=== PATIENT | male | born 1945 | race Caucasian/White ===

== ENCOUNTER 2017-07-26 13:15 | Inpatient (IN) | payer MEDICARE ==
[2017-07-26] VITALS (9 sets, daily range): BP systolic 175–206; BP diastolic 78–105; PULSE 66–96; RESP 18–20; TEMP 97.8; O2SAT 97–99
[~2017-07-26] VITALS: Ht 180.3 cm; Wt 86.3 kg
[2017-07-26 14:23] LABS: AUTOMATED NEUTROPHIL # 7.1 TH/MM3 (1.8-7.7); BASOPHIL % 0.4 % (0.0-2.0); EOSINOPHIL % 0.4 % (0.0-4.0); HEMATOCRIT 40.6 % (39.0-51.0); HEMOGLOBIN 14.1 GM/DL (13.0-17.0); LYMPH % 9.5 % (9.0-44.0); LYMPHOCYTE # 0.9 TH/MM3 (1.0-4.8); MEAN CELL VOLUME 91.2 FL (80.0-100.0); MEAN CORPUSCULAR HEMOGLOBIN 31.6 PG (27.0-34.0); MEAN CORPUSCULAR HGB CONC 34.7 % (32.0-36.0); MEAN PLATELET VOLUME 7.7 FL (7.0-11.0); MONO % 10.4 % (0.0-8.0); MONOCYTE # 0.9 TH/MM3 (0-0.9); NEUT % 79.3 % (16.0-70.0); PLATELET COUNT 251 TH/MM3 (150-450); RED BLOOD COUNT 4.45 MIL/MM3 (4.50-5.90); RED CELL DISTRIBUTION WIDTH 12.3 % (11.6-17.2)
[2017-07-26 14:32] LABS: INTERNATIONAL NORMALIZED RATIO 1.2 RATIO; PROTHROMBIN TIME - PATIENT 11.7 SEC (9.8-11.6)
[2017-07-26 14:40] LABS: CALCIUM 8.7 MG/DL (8.5-10.1); CREATININE 0.86 MG/DL (0.60-1.30)
[2017-07-26] MEDS ORDERED: SODIUM CHLORIDE 0.9% FLUSH 10 ML FLUSH IVF PRN (16:00)
--- NOTE | 2017-07-26 16:21 | RADRPT ---
EXAM DATE/TIME: 07/26/2017 16:09 [facility] COMPARISON: No previous studies available for comparison. INDICATIONS : Right sided weakness with slurred speech for two days. RADIATION DOSE: 37.84 CTDIvol (mGy) MEDICAL HISTORY : Hypertension. Thyroid disease. SURGICAL HISTORY : None. ENCOUNTER: Initial ACUITY: 2 days PAIN SCALE: 3/10 LOCATION: Right cranial TECHNIQUE: Multiple contiguous axial images were obtained of the head. Using automated exposure control and adj ustment of the mA and/or kV according to patient size, radiation dose was kept as low as reasonably a chievable to obtain optimal diagnostic quality images. DICOM format image data is available electro nically for review and comparison. FINDINGS: CEREBRUM: Periventricular low attenuation change involving both cerebral hemispheres. Small chronic lacunar inf arctions involving the basal ganglia bilaterally. The ventricles are normal for age. No evidence of midline shift, mass lesion, hemorrhage or acute infarction. No extra-axial fluid collections are see n. POSTERIOR FOSSA: The cerebellum and brainstem are intact. The 4th ventricle is midline. The cerebellopontine angle i s unremarkable. EXTRACRANIAL: The visualized portion of the orbits is intact. SKULL: The calvaria is intact. No evidence of skull fracture. CONCLUSION: 1. Chronic small vessel ischemic change. 2. No acute intracranial abnormality. Roman Payton Jr., MD on July 26, 2017 at 16:17 Board Certified Radiologist. This report was verified electronically.
--- NOTE | 2017-07-26 16:44 | RADRPT ---
EXAM DATE/TIME: 07/26/2017 16:18 [facility] COMPARISON: No previous studies available for comparison. INDICATIONS : Weakness. Evaluation for CVA. MEDICAL HISTORY : Hypertension. Thyroid disease. SURGICAL HISTORY : None. ENCOUNTER: Initial ACUITY: 1 day PAIN SCORE: 0/10 LOCATION: Bilateral chest FINDINGS: A single view of the chest demonstrates the lungs to be symmetrically aerated without evidence of mas s, infiltrate or effusion. The cardiomediastinal contours are unremarkable. Osseous structures are intact. CONCLUSION: 1. No acute cardiopulmonary disease. Israel Keenan MD on July 26, 2017 at 16:42 Board Certified Radiologist. This report was verified electronically.
--- NOTE | 2017-07-26 18:15 | PD ---
HPI Chief Complaint: Neuro Symptoms/ Deficits Time Seen by Provider: 15:38 Travel History International Travel<30 days: No Contact w/Intl Traveler<30days: No Traveled to known affect area: No History of Present Illness HPI This 71-year-old man who presents to the emergency department brought in by his family for right sided deficits. Family reports the patient developed symptoms last night. Right sided weakness numbness, difficulty walking, speech difficulties. There is some concern about alcohol use. He otherwise had been filled Gen. and healthy. Patient denies any medical history, denies seeing a doctor for any reason. Symptoms been constant since onset. No aggravating or alleviating factors. No other complaints. History Past Medical History Medical History: Denies Significant Hx Tetanus Vaccination: > 5 Years Influenza Vaccination: No Past Surgical History Surgical History: No Previous Surgery Social History Alcohol Use: Yes (3 x week) Tobacco Use: No Allergies-Medications (Allergen,Severity, Reaction): Coded Allergies: No Known Allergies (Unverified , 07/26/17) Reported Meds & Prescriptions Reported Meds & Active Scripts Active Active Prescriptions or Reported Medications Unobtainable Review of Systems Except as stated in HPI: all other systems reviewed are Neg Physical Exam Narrative GENERAL: 71-year-old man, tearful. 71-year-old woman, SKIN: Focused skin assessment warm/dry. HEAD: Atraumatic. Normocephalic. EYES: Pupils equal and round. No scleral icterus. No injection or drainage. ENT: No nasal bleeding or discharge. Mucous membranes pink and moist. Flattening of the right nasolabial fold. NECK: Trachea midline. No JVD. CARDIOVASCULAR: Regular rate and rhythm. No murmur appreciated. RESPIRATORY: No accessory muscle use. Clear to auscultation. Breath sounds equal bilaterally. GASTROINTESTINAL: Abdomen soft, non-tender, nondistended. Hepatic and splenic margins not palpable. MUSCULOSKELETAL: No obvious deformities. No clubbing. No cyanosis. No edema. NEUROLOGICAL: Awake and alert. Flattening of the right nasolabial fold with some right sided facial droop. Weakness especially in the right arm, less in the right leg. Some sensory changes on the right as well. Right sided dysmetric on the right upper extremity, less obvious in the right lower extremity. Speech difficulties of both some expressive aphasia as well as dysarthria. PSYCHIATRIC: Tearful and anxious. Data Data Last Documented VS Vital Signs Date Time Temp Pulse Resp B/P (MAP) Pulse Ox O2 Delivery O2 Flow Rate FiO2 07/26/17 16:30 68 19 183/84 (117) 99 Room Air 07/26/17 13:44 97.8 Orders Orders Complete Blood Count With Diff (07/26/17 14:11) Basic Metabolic Panel (Bmp) (07/26/17 14:11) Act Partial Throm Time (Ptt) (07/26/17 14:11) Prothrombin Time / Inr (Pt) (07/26/17 14:11) Ecg Monitoring (07/26/17 14:11) Oximetry (07/26/17 14:11) Blood Glucose (07/26/17 14:11) Electrocardiogram (07/26/17 15:47) Ct Brain W/O Iv Contrast(Rout) (07/26/17 15:47) Chest, Single Ap (07/26/17 15:47) Iv Access Insert/Monitor (07/26/17 15:47) Sodium Chloride 0.9% Flush (Ns Flush) (07/26/17 16:00) Alcohol (Ethanol) (07/26/17 16:06) Admit Order (Ed Use Only) (07/26/17 ) Vital Signs (Adult) Q4H (07/26/17 18:18) Diet Npo (07/26/17 Dinner) Activity Bed Rest (07/26/17 18:18) Notify Dr: Other (07/26/17 18:18) Place In Observation (07/26/17 ) Vital Signs (Adult) Q2HX12,Q4H (07/26/17 18:19) Nih Stroke Scale - Nihss .Daily (07/26/17 18:19) Neuro Checks Q2HX12,Q4H (07/26/17 18:19) Notify Dr: Other (07/26/17 18:19) Remove Urinary Catheter .ONCE (07/26/17 18:19) Ot Request For Service (07/26/17 18:19) Pt Request For Service (07/26/17 18:19) Case Management Consult (07/26/17 ) Activity Oob Ad Romelia (07/26/17 18:19) Nursing Bedside Swallow Assess .ONCE (07/26/17 18:19) Scd Bilateral/Knee High YOLANDA.QSHIFT (07/26/17 18:19) Hemoglobin (Hgb) A1c (07/26/17 18:19) Lipid Profile (07/27/17 06:00) Us Carotid Arteries Comp Bilat (07/26/17 ) Mra Brain W/O Contrast (Cow) (07/26/17 ) Mri Brain W/O Contrast (07/26/17 ) Echo 2d Comp With Doppler (07/26/17 ) ^ Hold Medication (07/26/17 18:19) Consult Neurology (07/26/17 ) Sodium Chloride 0.9% Flush (Ns Flush) (07/26/17 21:00) Sodium Chloride 0.9% Flush (Ns Flush) (07/26/17 18:30) Dextrose 50% In Maria A (Vial) Inj (D50w (Vi (07/26/17 18:30) Glucagon Inj (Glucagon Inj) (07/26/17 18:30) Overlock Sleeve Setter / Telemetry YOLANDA.Q8H (07/26/17 18:19) Consult Stroke Navigator (07/26/17 ) Labs Laboratory Tests Test 07/26/17 14:15 White Blood Count 9.0 TH/MM3 Red Blood Count 4.45 MIL/MM3 Hemoglobin 14.1 GM/DL Hematocrit 40.6 % Mean Corpuscular Volume 91.2 FL Mean Corpuscular Hemoglobin 31.6 PG Mean Corpuscular Hemoglobin Concent 34.7 % Red Cell Distribution Width 12.3 % Platelet Count 251 TH/MM3 Mean Platelet Volume 7.7 FL Neutrophils (%) (Auto) 79.3 % Lymphocytes (%) (Auto) 9.5 % Monocytes (%) (Auto) 10.4 % Eosinophils (%) (Auto) 0.4 % Basophils (%) (Auto) 0.4 % Neutrophils # (Auto) 7.1 TH/MM3 Lymphocytes # (Auto) 0.9 TH/MM3 Monocytes # (Auto) 0.9 TH/MM3 Eosinophils # (Auto) 0.0 TH/MM3 Basophils # (Auto) 0.0 TH/MM3 CBC Comment DIFF FINAL Differential Comment Prothrombin Time 11.7 SEC Prothromb Time International Ratio 1.2 RATIO Activated Partial Thromboplast Time 29.4 SEC Blood Urea Nitrogen 12 MG/DL Creatinine 0.86 MG/DL Random Glucose 98 MG/DL Calcium Level 8.7 MG/DL Sodium Level 129 MEQ/L Potassium Level 4.0 MEQ/L Chloride Level 94 MEQ/L Carbon Dioxide Level 27.0 MEQ/L Anion Gap 8 MEQ/L Estimat Glomerular Filtration Rate 88 ML/MIN Ethyl Alcohol Level LESS THAN 3 MG/DL MDM Medical Decision Making Medical Screen Exam Complete: Yes Emergency Medical Condition: Yes Interpretation(s) My review of EKG: Normal sinus rhythm at a rate of 70, leftward axis, normal intervals, no acute ischemia. Probably LVH. LABS: CBC unremarkable. BMP unremarkable. Coags unremarkable. Alcohol negative CT head: No acute disease Chest x-ray negative Differential Diagnosis Stroke, Raul's paralysis, head bleed, weakness, or joint abnormality, infection , other Narrative Course Medical decision making 71-year-old man presents emergent department with right sided paresis speech difficulties suggestive of stroke. Sinus rhythm. CT negative. We'll plan admission for further evaluation. Diagnosis Primary Impression: CVA (cerebral vascular accident) Admitting Information Admitting Physician Requests: Admit Scripts Unable to Obtain Active Prescriptions or Reported Meds Theodore Marques MD Jul 26, 2017 18:15
[2017-07-26] MEDS ORDERED: SODIUM CHLORIDE 0.9% FLUSH 10 ML FLUSH IV FLUSH PRN (18:30)
[2017-07-26] MEDS ORDERED: DEXTROSE 50% IN WATER 50 ML VIAL(D50) IV PUSH PRN (18:30)
[2017-07-26] MEDS ORDERED: GLUCAGON 1 MG/ML VIAL OTHER PRN (18:30)
[2017-07-26] MEDS: SODIUM CHLORIDE 0.9% FLUSH 10 ML FLUSH IV FLUSH SCH (21:10)
[2017-07-26] MEDS ORDERED: ATEN50TA PO (22:34)
--- NOTE | 2017-07-26 22:39 | RADRPT ---
EXAM DATE/TIME: 07/26/2017 21:18 [facility] COMPARISON: No previous studies available for comparison. INDICATIONS : Transient ischemic attack. MEDICAL HISTORY : Hypertension. Thyroid disease. Weakness. Numbness. ETOH use. SURGICAL HISTORY : None. ENCOUNTER: Initial ACUITY: 1 day PAIN SCORE: 3/10 LOCATION: Bilateral neck PEAK SYSTOLIC VELOCITIES (cm/sec): ICA/CCA RATIO: Right: 1.5 Left: 0.7 ICA: Right: 123 Left: 64 CCA: Right: 84 Left: 89 ECA: Right: 93 Left: 84 VERTEBRAL: Right: 59 antegrade Left: 60 antegrade Elevated flow velocities and ICA/CCA ratios have been found to correlate with increased degrees of vessel stenosis, calculated as percentage of diameter relative to a normal segment of distal ICA/CCA FINDINGS: RIGHT CAROTID: Mild noncalcified plaque in the carotid bulb. No significant stenosis is visualized. The waveforms are within normal limits. LEFT CAROTID: No significant stenosis is visualized. The waveforms are within normal limits. VERTEBRAL ARTERIES: Antegrade flow is seen in both vertebral arteries. MISCELLANEOUS: None. CONCLUSION: Right carotid bulb plaque formation with hemodynamic profile on both sides characteristic of less antwon n 50% stenosis. Roman Poole MD on July 26, 2017 at 22:35 Board Certified Radiologist. This report was verified electronically.
[2017-07-26] MEDS ORDERED: hydrALAZINE HCL 20 MG/ML VIAL IV PUSH ONE (22:45)
[2017-07-27] VITALS (10 sets, daily range): BP systolic 159–190; BP diastolic 79–95; PULSE 75–99; RESP 16–20; TEMP 97.8–99.1; O2SAT 98–99
[2017-07-27] MEDS ORDERED: LORazepam 1 MG TAB PO PRN (00:30)
[2017-07-27] MEDS ORDERED: LORazepam 2 MG/ML VIAL IV PUSH PRN ×4 (00:30)
[2017-07-27] MEDS ORDERED: LORazepam 2 MG TAB PO PRN (00:30)
[2017-07-27] MEDS ORDERED: SODIUM CHLOR 0.9% 1000 ML INJ 1,000 ML IV SCH (00:30)
[2017-07-27] MEDS ORDERED: FLUMAZENIL 0.5 MG/5 ML VIAL IV PUSH PRN (00:30)
[2017-07-27] MEDS ORDERED: ASPIRIN 81 MG CHEW TAB CHEW ONE (00:30)
--- NOTE | 2017-07-27 00:33 | HHI.HP ---
[facility] Service [facility] Primary Care Physician Unknown Admission Diagnosis CVA Diagnoses: Travel History International Travel<30 Days: No Contact w/Intl Traveler <30 Da: No Traveled to Known Affected Are: No History of Present Illness 71-year-old male with a past medical history significant for hypertension and hypothyroidism was brought to the emergency department for evaluation of right- sided deficits. The patient reports that yesterday he fell asleep and when he awoke his right arm was numb and weak. He also states that yesterday he fell while he was walking because he had no balance. The patient has slurred speech which was noticed by his niece and he was encouraged to go to the emergency department for further evaluation. He remains asymptomatic with slurred speech , right-sided facial droop and right upper and lower extremity weakness. Head CT was negative for acute intercranial abnormality but did show small vessel ischemic change. Review of Systems Denies fever or chills Denies blurry vision, otorrhea, rhinorrhea Denies sore throat and cough No chest pain, palpitations, shortness of breath No abdominal pain Denies constipation/diarrhea/nausea/vomiting Denies muscle pain/positive right sided weakness No rashes Past Family Social History Past Medical History Hypertension Hypothyroidism Past Surgical History None Reported Medications Reported Meds & Active Scripts Active Reported Atenolol 50 Mg Tab 50 Mg PO BID Unspecified thyroid medication Allergies: Coded Allergies: No Known Allergies (Unverified , 07/26/17) Family History Denies family history of CAD/DM Social History Quit smoking 15 years ago. Drinks approximately 1 bottle of wine 3 times per week. Denies marijuana, illicit drugs. Physical Exam Vital Signs Vital Signs Date Time Temp Pulse Resp B/P (MAP) Pulse Ox O2 Delivery O2 Flow Rate FiO2 07/27/17 00:00 98.7 81 18 163/95 (117) 98 Room Air 07/26/17 23:14 67 18 175/80 (111) 98 Room Air 07/26/17 22:32 66 18 206/91 (129) 99 Room Air 07/26/17 21:36 77 18 178/85 (116) 98 Nasal Cannula 4.00 07/26/17 21:15 96 20 186/100 (128) 98 07/26/17 20:17 70 18 187/78 (114) 98 Room Air 07/26/17 16:30 68 19 183/84 (117) 99 Room Air 07/26/17 15:20 69 20 205/105 (138) 99 Room Air 07/26/17 15:18 98 Room Air 07/26/17 13:44 97.8 70 20 195/91 (125) 97 Physical Exam GENERAL: male lying in bed SKIN: No rashes, ecchymoses or lesions. Cool and dry. HEAD: Atraumatic. Normocephalic. No temporal or scalp tenderness. EYES: Pupils equal round and reactive. Extraocular motions intact. No scleral icterus. No injection or drainage. ENT: Nose without bleeding, purulent drainage or septal hematoma. Throat without erythema, tonsillar hypertrophy or exudate. Uvula midline. Airway patent. NECK: Trachea midline. No JVD or lymphadenopathy. Supple, nontender, no meningeal signs. CARDIOVASCULAR: Regular rate and rhythm without murmurs, gallops, or rubs. RESPIRATORY: Clear to auscultation. Breath sounds equal bilaterally. No wheezes , rales, or rhonchi. GASTROINTESTINAL: Abdomen soft, non-tender, nondistended. No hepato-splenomegaly , or palpable masses. No guarding. MUSCULOSKELETAL: Extremities without clubbing, cyanosis, or edema. No joint tenderness, effusion, or edema noted. No calf tenderness. NEUROLOGICAL: Awake and alert. Slurred speech. Right-sided facial droop. Right hand electric fan assembler strength 2/5. Right upper and lower extremity strength 3/5. Laboratory Laboratory Tests Test 07/26/17 14:15 White Blood Count 9.0 Red Blood Count 4.45 Hemoglobin 14.1 Hematocrit 40.6 Mean Corpuscular Volume 91.2 Mean Corpuscular Hemoglobin 31.6 Mean Corpuscular Hemoglobin Concent 34.7 Red Cell Distribution Width 12.3 Platelet Count 251 Mean Platelet Volume 7.7 Neutrophils (%) (Auto) 79.3 Lymphocytes (%) (Auto) 9.5 Monocytes (%) (Auto) 10.4 Eosinophils (%) (Auto) 0.4 Basophils (%) (Auto) 0.4 Neutrophils # (Auto) 7.1 Lymphocytes # (Auto) 0.9 Monocytes # (Auto) 0.9 Eosinophils # (Auto) 0.0 Basophils # (Auto) 0.0 CBC Comment DIFF FINAL Differential Comment Prothrombin Time 11.7 Prothromb Time International Ratio 1.2 Activated Partial Thromboplast Time 29.4 Blood Urea Nitrogen 12 Creatinine 0.86 Random Glucose 98 Calcium Level 8.7 Sodium Level 129 Potassium Level 4.0 Chloride Level 94 Carbon Dioxide Level 27.0 Anion Gap 8 Estimat Glomerular Filtration Rate 88 Ethyl Alcohol Level LESS THAN 3 Result Diagram: 07/26/17 14107/26/17 141 Caprini VTE Risk Assessment Caprini VTE Risk Assessment: Mod/High Risk (score >= 2) Caprini Risk Assessment Model Point Value = 1 Point Value = 2 Point Value = 3 Point Value = 5 Age 41-60 Minor surgery BMI > 25 kg/m2 Swollen legs Varicose veins or History of unexplained or recurrent spontaneous Oral contraceptives or hormone replacement Sepsis (< 1 month) Serious lung disease, including pneumonia (< 1 month) Abnormal pulmonary function Acute myocardial infarction Congestive heart failure (< 1 month) History of inflammatory bowel disease Medical patient at bed rest Age 61-74 Arthroscopic surgery Major open surgery (> 45 min) Laparoscopic surgery (> 45 min) Malignancy Confined to bed (> 72 hours) Immobilizing plaster cast Central venous access Age >= 75 History of VTE Family history of VTE Factor V Leiden Prothrombin [id number] Lupus anticoagulant Anticardiolipin antibodies Elevated serum homocysteine Heparin-induced thrombocytopenia Other congenital or acquired thrombophilia Stroke (< 1 month) Elective arthroplasty Hip, pelvis, or leg fracture Acute spinal cord injury (< 1 month) Prophylaxis Regimen Total Risk Factor Score Risk Level Prophylaxis Regimen 0-1 Low Early ambulation 2 Moderate Order ONE of the following: *Sequential Compression Device (SCD) *Heparin 5000 units SQ BID 3-4 Higher Order ONE of the following medications: *Heparin 5000 units SQ TID *Enoxaparin/Lovenox 40 mg SQ daily (WT < 150 kg, CrCl > 30 mL/min) *Enoxaparin/Lovenox 30 mg SQ daily (WT < 150 kg, CrCl > 10-29 mL/min) *Enoxaparin/Lovenox 30 mg SQ BID (WT < 150 kg, CrCl > 30 mL/min) AND/OR *Sequential Compression Device (SCD) 5 or more Highest Order ONE of the following medications: *Heparin 5000 units SQ TID (Preferred with Epidurals) *Enoxaparin/Lovenox 40 mg SQ daily (WT < 150 kg, CrCl > 30 mL/min) *Enoxaparin/Lovenox 30 mg SQ daily (WT < 150 kg, CrCl > 10-29 mL/min) *Enoxaparin/Lovenox 30 mg SQ BID (WT < 150 kg, CrCl > 30 mL/min) AND *Sequential Compression Device (SCD) Assessment and Plan Assessment and Plan Assessment/plan: 1. CVA Patient with residual right-sided weakness and right facial droop, continuing slurred speech CT head negative for acute intracranial process Carotid ultrasound showed right carotid bulb plaque formation with less than 50 % stenosis Brain MRI/MRA pending Echo pending Lipid profile, A1c pending Aspirin Neurology consulted, appreciate recommendations 2. Hypertension Permissive hypertension at this time 3. Hypothyroidism TSH pending Will clarify patient's home thyroid medication and restart 4. Concern for alcohol abuse Patient states he drinks 1 bottle of wine approximately 3 times per week. Per ED notes, there is concern about alcohol abuse CIWA protocol Cessation counseling provided FEN NPO NS at 70 cc/hr Electrolytes: monitor and replete prn Physician Certification 2 Midnight Certification Type: Admission for Inpatient Services Order for Inpatient Services The services are ordered in accordance with Medicare regulations or non- Medicare payer requirements, as applicable. In the case of services not specified as inpatient-only, they are appropriately provided as inpatient services in accordance with the 2-midnight benchmark. Estimated LOS (days): 2 2 days is the estimated time the patient will need to remain in the hospital, assuming treatment plan goals are met and no additional complications. Post-Hospital Plan: Not yet determined Chloé Hager MD Jul 27, 2017 00:32
[2017-07-27 07:42] LABS: AUTOMATED NEUTROPHIL # 8.4 TH/MM3 (1.8-7.7); BASOPHIL % 0.2 % (0.0-2.0); EOSINOPHIL % 0.4 % (0.0-4.0); HEMATOCRIT 41.8 % (39.0-51.0); HEMOGLOBIN 14.8 GM/DL (13.0-17.0); LYMPH % 12.8 % (9.0-44.0); LYMPHOCYTE # 1.4 TH/MM3 (1.0-4.8); MEAN CELL VOLUME 91.4 FL (80.0-100.0); MEAN CORPUSCULAR HEMOGLOBIN 32.3 PG (27.0-34.0); MEAN CORPUSCULAR HGB CONC 35.3 % (32.0-36.0); MEAN PLATELET VOLUME 8.4 FL (7.0-11.0); MONO % 10.2 % (0.0-8.0); MONOCYTE # 1.1 TH/MM3 (0-0.9); NEUT % 76.4 % (16.0-70.0); PLATELET COUNT 257 TH/MM3 (150-450); RED BLOOD COUNT 4.57 MIL/MM3 (4.50-5.90); RED CELL DISTRIBUTION WIDTH 12.5 % (11.6-17.2)
[2017-07-27 07:59] LABS: CALCIUM 8.3 MG/DL (8.5-10.1); CREATININE 0.73 MG/DL (0.60-1.30)
[2017-07-27 08:08] LABS: CHOLESTEROL/ HDL RATIO 3.09 RATIO; HDL CHOLESTEROL 61.1 MG/DL (40.0-60.0)
[2017-07-27 08:20] LABS: BANDS 6 % (0-6); LYMPHOCYTES 13 % (9-44); MONOCYTES 13 % (0-8); POLYS (SEG NEUTROPHILS) 67 % (16-70)
[2017-07-27] MEDS: SODIUM CHLOR 0.9% 1000 ML INJ 1,000 ML IV SCH ×2 (09:00→22:36)
[2017-07-27] MEDS: SODIUM CHLORIDE 0.9% FLUSH 10 ML FLUSH IV FLUSH SCH ×2 (09:00→22:36)
[2017-07-27] MEDS: ASPIRIN EC 325 MG TABEC PO SCH (09:00)
[2017-07-27] MEDS ORDERED: GADODIAMIDE PF 287 MG/ML 20 ML VIAL (for RAD MRI) IVCONTRAST ONE (09:28)
--- NOTE | 2017-07-27 09:33 | RADRPT ---
EXAM DATE/TIME: 07/27/2017 09:07 [facility] COMPARISON: No previous studies available for comparison. INDICATIONS : Right sided weakness. CVA. MEDICAL HISTORY : Hypertension. SURGICAL HISTORY : Tonsillectomy. ENCOUNTER: Subsequent ACUITY: 2 day PAIN SCORE: 0/10 LOCATION: head. Please note a normal MRA of the brain does not entirely exclude the possibility of a small aneurysm, nor the possibility of distal intracranial vessel disease. TECHNIQUE: 3D time of flight MRA was performed. Source images, multiplanar STS MIP, and 3D volume MIP reconstru ctions were reviewed. FINDINGS: There is excellent visualization of the major intracranial arteries out to the second-order branch ve ssels. There is no evidence for aneurysm, and no evidence for vascular malformation. There is some low grade narrowing involving the left middle cerebral artery just proximal to its bifu rcation. CONCLUSION: Slight narrowing of the distal left middle cerebral artery, otherwise unremarkable exam. Theodore Lanier MD on July 27, 2017 at 9:30 Board Certified Radiologist. This report was verified electronically.
--- NOTE | 2017-07-27 10:09 | RADRPT ---
EXAM DATE/TIME: 07/27/2017 09:07 [facility] COMPARISON: No previous studies available for comparison. INDICATIONS : Right sided weakness. CVA. CONTRAST: 20 cc Omniscan (gadodiamide) IV MEDICAL HISTORY : Hypertension. SURGICAL HISTORY : Tonsillectomy. ENCOUNTER: Subsequent ACUITY: 2 day PAIN SCORE: 0/10 LOCATION: head. TECHNIQUE: Multiplanar, multisequence MRI of the brain was performed both prior to and following the administrat ion of paramagnetic contrast. FINDINGS: CEREBRUM: The ventricles are normal for age. No evidence of midline shift, mass lesion, hemorrhage or acute in farction. No extraaxial fluid collections are seen. The pituitary gland and suprasellar cistern are normal in configuration. WHITE MATTER: Scattered areas of increased signal in the periventricular white matter suggesting ischemic demyelini zation POSTERIOR FOSSA: The cerebellum and brainstem are intact. The 4th ventricle is midline. The cerebellopontine angle is unremarkable. The cerebellar tonsils are normal in position. DIFFUSION IMAGING: Elongated abnormal areas of signal in the external capsule on the left measuring 1.9 cm in AP dimensi on and 3-4 mm across. It appears thin elongated infarct. EXTRACRANIAL: The visualized portions of the orbits and paranasal sinuses are unremarkable. POST-CONTRAST: No abnormal areas of parenchymal or dural enhancement. No evidence of blood-brain barrier breakdown. CONCLUSION: Infarct in the left external capsule. No significant mass or mass effect. Theodore Lanier MD on July 27, 2017 at 10:05 Board Certified Radiologist. This report was verified electronically.
--- NOTE | 2017-07-27 10:33 | RADRPT ---
EXAM DATE/TIME: 07/27/2017 09:07 [facility] COMPARISON: No previous studies available for comparison. INDICATIONS : Stenosis. CVA. CONTRAST: 20 cc Omniscan (gadodiamide) IV MEDICAL HISTORY : Hypertension. SURGICAL HISTORY : Tonsillectomy. ENCOUNTER: Subsequent ACUITY: 2 day PAIN SCORE: 0/10 LOCATION: head. Percent stenosis is calculated using the diameter of the stenotic region over the diameter of the nor mal distal internal carotid artery. TECHNIQUE: Bolus infused MRA of the extracranial circulation was performed using a neurovascular coil. Post pro cessing was performed including rotating subvolume maximum intensity projections of each carotid lamonte ry, rotating full volume maximum intensity projections of both carotid arteries, sagittal and coronal sliding thin slab reformations of each carotid artery, and left oblique sliding thin slab reformatio n through the aortic arch to include the origin of the arch branch vessels. FINDINGS: AORTIC ARCH: There is a three vessel origin of the great vessels from the aorta. No evidence of ostial narrowing. RIGHT CAROTID: The common carotid artery is intact. The carotid bulb has a normal configuration without ulceration or narrowing. Eccentric plaque in the proximal internal carotid artery with resultant approximate 20 -30% stenosis. The internal carotid artery is otherwise patent to the skull base. The external carot id artery is intact. LEFT CAROTID: The common carotid artery is intact. The carotid bulb has a normal configuration without ulceration or narrowing. The internal carotid artery lumen is smooth without significant stenosis. The externa l carotid artery is intact. VERTEBRALS: The vertebral arteries have a symmetric diameter. No stenotic lesions are seen. CONCLUSION: 1. Eccentric plaque in the proximal right internal carotid artery with resultant approximately 20-30% stenosis. 2. Patent left carotid artery without significant flow-limiting stenosis. 3. Patent vertebral arteries without significant flow-limiting stenosis. Israel Keenan MD on July 27, 2017 at 10:25 Board Certified Radiologist. This report was verified electronically.
--- NOTE | 2017-07-27 11:56 | MB ---
cc: GUYCARMEN DATE OF CONSULTATION 07/27/2017 HISTORY OF PRESENT ILLNESS A 71-year-old right-handed man with hypertension, hypothyroidism. He does not take an aspirin a day. He thinks about 10 years ago he might had some weakness on the right side, went to the ER but left from the ER, was told he did not have a stroke. Nevertheless last Monday he became weak on the right side. He says he had breathed in some carbon monoxide from a car going by his house and then went in, took a nap, woke up, could not move his right arm well. He had several falls yesterday and came into the hospital last night. REVIEW OF SYSTEMS No diabetes, hypercholesterolemia, CA, CABG, cardiac arrhythmia, stent, angioplasty, A-fib, Coumadin, renal, hepatic, pulmonary disease, lupus, ulcer, cancer, seizure. SOCIAL HISTORY He is not a smoker. Has two drinks a day, beer. Lives with his niece. FAMILY HISTORY Negative for cancer or seizure. Positive for stroke in his father at an older age. MEDICATIONS Atenolol. Does not take an aspirin a day or any blood thinners. PHYSICAL EXAMINATION VITAL SIGNS: On exam he has been sinus rhythm, afebrile, 99, 161/85, initially 205/105. NECK: There were no carotid bruits. HEART: Regular rhythm. I do not detect a murmur. NEUROLOGIC: Pupils are equal. Visual soto are full. Extraocular movements intact without nystagmus. Face has a slight right facial droop. Tongue was midline. He has a positive right drift. His left upper and lower extremity strength was normal as was the right lower extremity strength. The right upper extremities has some a mild ataxia. His triceps was 5/5, finger extensors 4+/5 and he is clumsy moving the right hand. Speech is fluent. He is not aphasic. He is oriented x3. Pinprick appeared to be symmetric and intact. The toes are downgoing bilaterally. DTRs are trace. LABORATORY DATA CBC was normal. Alcohol level negative. Basic metabolic profile - sodium 129, otherwise normal. IMAGING STUDIES Chest x-ray - Negative. Carotid ultrasound - Negative. CAT scan of the brain shows some white matter changes bilaterally, several discrete individual areas of white matter change. EKG Sinus rhythm. IMPRESSION 1. Left infarct. He has got a pure motor hemiparesis, could be lacunar either in the nicole are by the internal capsule. We will check an MRI of the brain for now, put him on aspirin, check his LDL cholesterol, some additional blood work. 2. Keep his head of bed flat. 3. IV fluids. 4. His niece thinks he is a little better than when he came in. 5. We will let his blood pressure run high for now. 6. Do an echo and Holter and further stroke workup. 7. Check a troponin. MD ALIZA Hicks/HEIDE /8:00 AM /11:02 AM
--- NOTE | 2017-07-27 13:29 | EKG ---
Date Performed: 07/26/2017 Time Performed: 15:36:46 PTAGE: 71 years EKG: Sinus rhythm WITH FIRST DEGREE AV BLOCK MARKED LEFT AXIS DEVIATION MODERATE VOLTAGE CRITERIA FOR LVH, CONSIDER NO RMAL VARIANT ABNORMAL ECG NO PREVIOUS TRACING DOCTOR: Sachin Hillman Interpretating Date/Time 07/27/2017 13:27:54
[2017-07-27 14:28] LABS: ALT (GPT) 25 U/L (12-78); AST (GOT) 33 U/L (15-37)
[2017-07-27 14:31] LABS: FREE T4 1.53 NG/DL (0.76-1.46); TROPONIN I LESS THAN 0.02 NG/ML (0.02-0.05)
[2017-07-27 15:32] LABS: HEMOGLOBIN A1C 4.7 % (4.3-6.0)
--- NOTE | 2017-07-27 15:41 | ECHRPT ---
Indication: cva/tia CONCLUSIONS Normal left ventricular size. Wall thickness is measured at the upper limits of normal. The left ventricular systolic function is normal with an estimated ejection fraction of 60-65% [id number] mitral valve regurgitation. There is mild tricuspid valve regurgitation. Doppler parameters are consistent with impaired left ventricular relaxtion (grade 1 diastolic dysfun ction). Mild aortic dilatation at the level of the sinuses of Valsalva. BP: 206 / 91 HR: Rhythm: MEASUREMENTS (Male / Female) Normal Values Technical Quality:Fair 2D ECHO LV Diastolic Diameter PLAX 3.6 cm 4.2 - 5.9 / 3.9 - 5.3 cm LV Systolic Diameter PLAX 2.5 cm IVS Diastolic Thickness 1.1 cm 0.6 - 1.0 / 0.6 - 0.9 cm LVPW Diastolic Thickness 0.8 cm 0.6 - 1.0 / 0.6 - 0.9 cm LV Relative Wall Thickness 0.5 RV Internal Dim ED PLAX 2.8 cm M-MODE Aortic Root Diameter MM 4.4 cm LA Systolic Diameter MM 4.2 cm LA Ao Ratio MM 1.0 AV Cusp Separation MM 1.5 cm DOPPLER Mitral E Point Velocity 81.4 cm/s Mitral A Point Velocity 122.0 cm/s Mitral E to A Ratio 0.7 LV E' Lateral Velocity 8.2 cm/s Mitral E to LV E' Lateral Ratio 9.9 LV E' Septal Velocity 7.1 cm/s Mitral E to LV E' Septal Ratio 11.4 FINDINGS LEFT VENTRICLE Normal left ventricular size. Wall thickness is measured at the upper limits of normal. The left ventricular systolic function is normal with an estimated ejection fraction in the range of 60-65%. Doppler parameters are consistent with impaired left ventricular relaxtion (grade 1 diastolic dysfun ction). RIGHT VENTRICLE Normal right ventricular size and systolic function. LEFT ATRIUM The left atrial size is normal. RIGHT ATRIUM The right atrial size is normal. ATRIAL SEPTUM Normal atrial septal thickness without atrial level shunting by limited color doppler interrogation. AORTA Mild aortic dilatation at the level of the sinuses of Valsalva. MITRAL VALVE Structurally normal mitral valve. Ukvtu-pt-ense mitral valve regurgitation. AORTIC VALVE Trileaflet aortic valve. TRICUSPID VALVE Structurally normal tricuspid valve. There is mild tricuspid valve regurgitation. PULMONARY VALVE No pulmonary valve regurgitation or stenosis. VESSELS The inferior vena cava is normal in size. PERICARDIUM No pericardial effusion. Quan A. Horenstein MD (Electronically Signed) Final Date:27 July 2017 15:40
[2017-07-28] VITALS (12 sets, daily range): BP systolic 162–187; BP diastolic 81–101; PULSE 73–96; RESP 18–20; TEMP 97.5–98.8; O2SAT 97–98
--- NOTE | 2017-07-28 07:36 | HHI.PR ---
Subjective Remarks sr Objective Vital Signs Date Time Temp Pulse Resp B/P (MAP) Pulse Ox O2 Delivery O2 Flow Rate FiO2 07/28/17 06:09 97.7 78 18 179/101 (127) 97 07/28/17 05:34 73 07/28/17 01:34 80 07/28/17 00:08 97.5 74 18 179/94 (122) 98 07/27/17 21:33 98.7 75 18 173/89 (117) 98 07/27/17 16:21 82 07/27/17 15:41 97.8 78 20 181/85 (117) 98 07/27/17 12:00 99.1 81 20 190/92 (124) 98 I/O 07/27/17 07/27/17 07/27/17 07/28/17 07/28/17 07/28/17 07:00 15:00 23:00 07:00 15:00 23:00 Output Total 350 ml 500 ml 350 ml Balance -350 ml -500 ml -350 ml Output Urine Total 350 ml 500 ml 350 ml # Voids 1 # Bowel Movements 0 Result Diagram: 07/27/17 0652 07/27/17 0648 Objective Remarks speech clear vff very ataxic rue and now fingers 2/5 rle 4+ tricep 5- right Assessment and Plan Assessment and Plan imp (there was another pts info incorrectly in this chart and i have fixed that) mr watson has gotten a little worse since yest his ldl inc and left deep mca cva some ? mild left distal dz mca before trifurcation mra neck neg echo nl x la 42 will need cardionet o/p plan is 325 as and he needs statin ellie started keep ivf on hob flat and bp up today and neuro will fu in am call me if any inc weakness i dw charge nurse Sachin Nicole MD Jul 28, 2017 07:35
[2017-07-28] MEDS: SODIUM CHLORIDE 0.9% FLUSH 10 ML FLUSH IV FLUSH SCH ×2 (08:14→20:29)
[2017-07-28] MEDS: ASPIRIN EC 325 MG TABEC PO SCH (08:14)
[2017-07-28] MEDS: SODIUM CHLOR 0.9% 1000 ML INJ 1,000 ML IV SCH ×3 (12:30→23:12)
[2017-07-28 14:29] LABS: BICARBONATE 20.7 MEQ/L (21.0-32.0); CREATININE 0.74 MG/DL (0.60-1.30)
[2017-07-28 15:26] LABS: ANA SCREEN NEG (NEG)
--- NOTE | 2017-07-28 15:59 | HHI.PR ---
Subjective Remarks Patient says he is feeling ordered today. Reports he had poor sleep overnight, is requesting some for sleep at night. Continued right-sided weakness unchnaged this morning Objective Vital Signs Date Time Temp Pulse Resp B/P (MAP) Pulse Ox O2 Delivery O2 Flow Rate FiO2 07/28/17 11:36 98.1 93 20 169/91 (117) 98 07/28/17 10:00 84 07/28/17 07:45 98.8 84 20 187/100 (129) 97 07/28/17 06:09 97.7 78 18 179/101 (127) 97 07/28/17 05:34 73 07/28/17 01:34 80 07/28/17 00:08 97.5 74 18 179/94 (122) 98 07/27/17 21:33 98.7 75 18 173/89 (117) 98 07/27/17 16:21 82 I/O 07/27/17 07/27/17 07/27/17 07/28/17 07/28/17 07/28/17 07:00 15:00 23:00 07:00 15:00 23:00 Intake Total 1122 ml Output Total 350 ml 500 ml 350 ml 250 ml Balance -350 ml -500 ml -350 ml 872 ml Intake IV Total 1122 ml Output Urine Total 350 ml 500 ml 350 ml 250 ml # Voids 1 # Bowel Movements 0 Result Diagram: 07/27/17 0652 07/28/17 1333 Objective Remarks GENERAL: patient lying in bed. Appears comfortable. SKIN: Warm and dry. HEAD: Normocephalic. EYES: No scleral icterus. No injection or drainage. NECK: Supple, trachea midline. No JVD. CARDIOVASCULAR: Regular rate and rhythm without murmurs, gallops, or rubs. RESPIRATORY: Breath sounds equal bilaterally. No accessory muscle use. GASTROINTESTINAL: Abdomen soft, non-tender, nondistended. MUSCULOSKELETAL: No cyanosis, or edema. BACK: Nontender without obvious deformity. No CVA tenderness. A/P Assessment and Plan //CVA Patient with residual right-sided weakness and right facial droop, continuing slurred speech CT head negative for acute intracranial process Carotid ultrasound showed right carotid bulb plaque formation with less than 50 % stenosis Brain MRI/MRA pending Echo pending Lipid profile, A1c pending Aspirin Neurology consulted, appreciate recommendations = Urology following. Appreciate assistance Hyponatremia. Sodium 123 from 128. Suspect this is in part chronic due to alcoholism. We'll check magnesium. This appears to be partially hypovolemic with dehydration. Will bolus and increase normal saline maintenance fluids. Every 8 hour sodium. Follow-up magnesium level. // Hypertension Permissive hypertension at this time //Hyperlipidemia. Start statin. //Hypothyroidism TSH pending Will clarify patient's home thyroid medication and restart / Concern for alcohol abuse Patient states he drinks 1 bottle of wine approximately 3 times per week. Per ED notes, there is concern about alcohol abuse CIWA protocol Cessation counseling provided = 07/28 discontinue CIWA protocol. Not requiring today. Discharge Planning pending improvement in sodium. Pending neurology clearance. Kale Tillman MD Jul 28, 2017 15:59
[2017-07-28] MEDS ORDERED: POTASSIUM CHLORIDE 20 MEQ CONTROLLED RELEASE TAB PO ONE (16:00)
[2017-07-28] MEDS ORDERED: ATORVASTATIN 40 MG TAB PO ONE (16:00)
[2017-07-28] MEDS ORDERED: SODIUM CHLOR 0.9% 250 ML INJ 250 ML IV ONE (16:00)
[2017-07-29] VITALS (10 sets, daily range): BP systolic 141–199; BP diastolic 77–106; PULSE 51–86; RESP 17–20; TEMP 97.4–98.9; O2SAT 96–98
[2017-07-29 03:45] LABS: AUTOMATED NEUTROPHIL # 5.8 TH/MM3 (1.8-7.7); BASOPHIL # 0.1 TH/MM3 (0-0.2); BASOPHIL % 0.6 % (0.0-2.0); EOSINOPHIL # 0.1 TH/MM3 (0-0.4); EOSINOPHIL % 1.3 % (0.0-4.0); HEMATOCRIT 37.9 % (39.0-51.0); HEMOGLOBIN 13.3 GM/DL (13.0-17.0); LYMPH % 18.5 % (9.0-44.0); LYMPHOCYTE # 1.7 TH/MM3 (1.0-4.8); MEAN CELL VOLUME 89.8 FL (80.0-100.0); MEAN CORPUSCULAR HEMOGLOBIN 31.6 PG (27.0-34.0); MEAN CORPUSCULAR HGB CONC 35.1 % (32.0-36.0); MEAN PLATELET VOLUME 8.2 FL (7.0-11.0); MONO % 14.7 % (0.0-8.0); MONOCYTE # 1.3 TH/MM3 (0-0.9); NEUT % 64.9 % (16.0-70.0); PLATELET COUNT 246 TH/MM3 (150-450); RED BLOOD COUNT 4.22 MIL/MM3 (4.50-5.90); RED CELL DISTRIBUTION WIDTH 12.2 % (11.6-17.2); WHITE BLOOD COUNT 8.9 TH/MM3 (4.0-11.0)
[2017-07-29 04:08] LABS: ALBUMIN 3.2 GM/DL (3.4-5.0); BICARBONATE 24.2 MEQ/L (21.0-32.0); CALCIUM 7.9 MG/DL (8.5-10.1); CREATININE 0.6 MG/DL (0.60-1.30); MAGNESIUM 1.7 MG/DL (1.5-2.5); PHOSPHORUS 2.1 MG/DL (2.5-4.9)
[2017-07-29 07:40] LABS: BILIRUBIN, URINE NEG (NEG); BLOOD, URINE NEG (NEG); GLUCOSE,URINE NEG (NEG); KETONE, URINE NEG (NEG); MUCUS URINE FEW /lpf (OCC); NITRITE,URINE NEG (NEG); URINE COLOR LIGHT-YELLOW (YELLW/STRAW); URINE LEUKOCYTE ESTERASE NEG (NEG)
[2017-07-29] MEDS: SODIUM CHLOR 0.9% 1000 ML INJ 1,000 ML IV SCH ×2 (08:00→16:00)
[2017-07-29] MEDS: SODIUM CHLORIDE 0.9% FLUSH 10 ML FLUSH IV FLUSH SCH ×2 (08:25→20:38)
[2017-07-29] MEDS: ATORVASTATIN 40 MG TAB PO SCH (08:25)
[2017-07-29] MEDS: ASPIRIN EC 325 MG TABEC PO SCH (08:26)
--- NOTE | 2017-07-29 09:14 | HHI.PR ---
Subjective Remarks Blood pressure no higher side started medications Vasotec allow her. Patient denies having any headaches says that however and the same not improving. No new motor deficit., No Vomiting, diarrhea or constipation. Objective Vitals Vital Signs Date Time Temp Pulse Resp B/P (MAP) Pulse Ox O2 Delivery O2 Flow Rate FiO2 07/29/17 08:08 98.5 51 17 199/106 (137) 97 07/29/17 04:00 98.0 74 18 190/91 (124) 96 07/29/17 00:41 75 07/29/17 00:00 98.7 62 18 151/77 (101) 96 07/28/17 21:09 73 07/28/17 20:00 98.5 79 18 162/81 (108) 98 07/28/17 16:30 83 07/28/17 15:44 97.9 84 20 179/92 (121) 97 07/28/17 12:10 96 07/28/17 11:36 98.1 93 20 169/91 (117) 98 07/28/17 10:00 84 I/O 07/28/17 07/28/17 07/28/17 07/29/17 07/29/17 07/29/17 07:00 15:00 23:00 07:00 15:00 23:00 Intake Total 2042 ml 250 ml 1451 ml Output Total 350 ml 775 ml 400 ml 700 ml Balance -350 ml 1267 ml 250 ml 1051 ml -700 ml Intake Oral 920 ml 451 ml IV Total 1122 ml 250 ml 1000 ml Output Urine Total 350 ml 775 ml 400 ml 700 ml # Bowel Movements 0 0 Result Diagram: 07/29/17 0324 07/29/17 0324 Imaging Last Impressions Neck Magnetic Resonance Angiography 07/27/17802 Signed Impressions: Service Date/Time: July 09:07 - CONCLUSION: 1. Eccentric plaque in the proximal right internal carotid artery with resultant approximately 20-30%% stenosis. 2. Patent left carotid artery without significant flow-limiting stenosis. 3. Patent vertebral arteries without significant flow-limiting stenosis. Israel Keenan MD Brain MRI 07/27/17802 Signed Impressions: Service Date/Time: July 09:07 - CONCLUSION: Infarct in the left external capsule. No significant mass or mass effect. Theodore Lanier MD Head Magnetic Resonance Angiography 07/27/17 0000 Signed Impressions: Service Date/Time: July 09:07 - CONCLUSION: Slight narrowing of the distal left middle cerebral artery, otherwise unremarkable exam. Theodore Lanier MD Head CT 07/26/17 1547 Signed Impressions: Service Date/Time: Wednesday, July 26, 2017 16:09 - CONCLUSION: 1. Chronic small vessel ischemic change. 2. No acute intracranial abnormality. Roman Payton Jr., MD Chest X-Ray 07/26/17 1547 Signed Impressions: Service Date/Time: Wednesday, July 26, 2017 16:18 - CONCLUSION: 1. No acute cardiopulmonary disease. Israel Keenan MD Carotid Artery Ultrasound 07/26/17 0000 Signed Impressions: Service Date/Time: Wednesday, July 26, 2017 21:18 - CONCLUSION: Right carotid bulb plaque formation with hemodynamic profile on both sides characteristic of less than 50%% stenosis. Roman Poole MD Objective Remarks GENERAL: 71 yo male, well nourished well developed, appears in nad. CARDIOVASCULAR: Regular rate and rhythm without murmurs, gallops, or rubs. RESPIRATORY: Breath sounds equal bilaterally. No accessory muscle use. GASTROINTESTINAL: Abdomen soft, non-tender, nondistended. MUSCULOSKELETAL: No cyanosis, or edema. NEURO: Right-sided weakness, slurred speech, drooping right side of face, out of 5 strength in the right arm, right hand drop, 3/5 right leg strength. BACK: Nontender without obvious deformity. No CVA tenderness. A/P Assessment and Plan CVA Patient with residual right-sided weakness and right facial droop, continuing slurred speech CT head negative for acute intracranial process Carotid ultrasound showed right carotid bulb plaque formation with less than 50 % stenosis Brain MRI/MRA pending Echo pending Lipid profile . Continue statin A1c 4.7 Aspirin Neurology consulted, ff, appreciate recommendations Consult PT/OT/ST Hyponatremia. Sodium 128. Suspect this is in part chronic due to alcoholism. This appears to be partially hypovolemic with dehydration. Will bolus and increase normal saline maintenance fluids. Every 8 hour sodium. Follow-up magnesium level. Replace electrolytes Hypertension Permissive hypertension at this time Hyperlipidemia. Start statin. Hypothyroidism TSH pending Will clarify patient's home thyroid medication and restart Concern for alcohol abuse Patient states he drinks 1 bottle of wine approximately 3 times per week. Per ED notes, there is concern about alcohol abuse CIWA protocol Cessation counseling provided 07/28 discontinue CIWA protocol. Not requiring. However patient is taking 1 mg ativan for insomnia at night at home, restart per neuro. Monitor Discharge Planning Pending improvement in sodium. Pending neurology clearance. Michelle Villalobos MD Jul 29, 2017 09:14
[2017-07-29] MEDS ORDERED: POTASSIUM PHOSPHATE MONOBASIC 500 MG TAB PO ONE (09:15)
--- NOTE | 2017-07-29 09:46 | HHI.PR ---
Review/Management Diagnosis/Plan: (1) Acute ischemic left MCA stroke ICD Codes: I63.512 - Cerebral infarction due to unspecified occlusion or stenosis of left middle cerebral artery Status: Acute Plan: aspirin/statin recs ativan for insomnia- home dose per pt/ request permissive htn mainly bedrest today excpet for eating and if dyspneic (2) HTN (hypertension) ICD Codes: I10 - Essential (primary) hypertension Status: Chronic (3) HLD (hyperlipidemia) ICD Codes: E78.5 - Hyperlipidemia, unspecified Status: Chronic Subjective Subjective Comments No acute events reported. not sleeping well. takes ativan 1mg qhs for insomnia. feels weaker if he doesn't get his sleep xcover No headache No chest pain No dyspnea Active Medications Current Medications Medications (Trade) Dose Ordered Sig/Luther Route Start Time Stop Time Status Last Admin (NS Flush) 2 ml BID IV FLUSH 07/26/17 21:00 07/28/17 20:29 (NS Flush) 2 ml UNSCH PRN IV FLUSH 07/26/17 18:30 (D50w (Vial) Inj) 50 ml UNSCH PRN IV PUSH 07/26/17 18:30 (Glucagon Inj) 1 mg UNSCH PRN OTHER 07/26/17 18:30 (Romazicon Inj) 0.2 mg Q1M PRN IV PUSH 07/27/17 00:30 (Ativan) 1 mg Q4H PRN PO 07/27/17 00:30 (Ativan) 2 mg Q2H PRN PO 07/27/17 00:30 (Ativan Inj) 2 mg Q2H PRN IV PUSH 07/27/17 00:30 (Ativan Inj) 2 mg Q1H PRN IV PUSH 07/27/17 00:30 (Ativan Inj) 2 mg Q15M PRN IV PUSH 07/27/17 00:30 (Ecotrin Ec) 325 mg DAILY PO 07/27/17 09:00 07/29/17 08:26 (Lipitor) 40 mg DAILY PO 07/29/17 09:00 07/29/17 08:25 Sodium Chloride 1,000 ml @ 125 mls/hr Q8H IV 07/28/17 16:00 07/29/17 08:00 (Vasotec Inj) 2.5 mg Q6H PRN IV PUSH 07/29/17 09:15 Allergies Allergies Coded Allergies No Known Allergies ([id number]/17) Review of Systems All other ROS: ROS reviewed as documented in chart Exam I&O / VS 07/29/17 07/29/17 07/30/17 15:00 23:00 07:00 Output Total 700 ml Balance -700 ml Output Urine Total 700 ml Vital Signs Date Time Temp Pulse Resp B/P (MAP) Pulse Ox O2 Delivery O2 Flow Rate FiO2 07/29/17 08:08 98.5 51 17 199/106 (137) 97 07/29/17 04:00 98.0 74 18 190/91 (124) 96 07/29/17 00:41 75 07/29/17 00:00 98.7 62 18 151/77 (101) 96 07/28/17 21:09 73 07/28/17 20:00 98.5 79 18 162/81 (108) 98 07/28/17 16:30 83 07/28/17 15:44 97.9 84 20 179/92 (121) 97 07/28/17 12:10 96 07/28/17 11:36 98.1 93 20 169/91 (117) 98 07/28/17 10:00 84 General: Alert and Oriented, No acute distress Respiratory: Non-labored respirations Neurologic: Alert, Oriented Psychiatric: Cooperative Exam Comments ox 3, follows, eomi, mild reduced rt nlf, rt hemiparesis 3/5 Objective Micro and Labs Laboratory Tests Test 07/28/17 13:33 07/29/17 03:24 07/29/17 06:46 Blood Urea Nitrogen 6 8 Creatinine 0.74 0.60 Random Glucose 133 103 Calcium Level 8.0 7.9 Sodium Level 123 128 Potassium Level 3.4 3.7 Chloride Level 92 95 Carbon Dioxide Level 20.7 24.2 Anion Gap 10 9 Estimat Glomerular Filtration Rate 105 133 Magnesium Level 1.6 1.7 White Blood Count 8.9 Red Blood Count 4.22 Hemoglobin 13.3 Hematocrit 37.9 Mean Corpuscular Volume 89.8 Mean Corpuscular Hemoglobin 31.6 Mean Corpuscular Hemoglobin Concent 35.1 Red Cell Distribution Width 12.2 Platelet Count 246 Mean Platelet Volume 8.2 Neutrophils (%) (Auto) 64.9 Lymphocytes (%) (Auto) 18.5 Monocytes (%) (Auto) 14.7 Eosinophils (%) (Auto) 1.3 Basophils (%) (Auto) 0.6 Neutrophils # (Auto) 5.8 Lymphocytes # (Auto) 1.7 Monocytes # (Auto) 1.3 Eosinophils # (Auto) 0.1 Basophils # (Auto) 0.1 CBC Comment AUTO DIFF Differential Comment AUTO DIFF CONFIRMED Platelet Estimate NORMAL Platelet Morphology Comment NORMAL Red Cell Morphology Comment NORMAL Albumin 3.2 Phosphorus Level 2.1 Urine Color LIGHT-YELLOW Urine Turbidity CLEAR Urine pH 7.0 Urine Specific [place] 1.009 Urine Protein NEG Urine Glucose (UA) NEG Urine Ketones NEG Urine Occult Blood NEG Urine Nitrite NEG Urine Bilirubin NEG Urine Urobilinogen LESS THAN 2.0 Urine Leukocyte Esterase NEG Urine RBC LESS THAN 1 Urine WBC LESS THAN 1 Urine Mucus FEW Microscopic Urinalysis Comment CULT NOT INDICATED Urine Opiates Screen NEG Urine Barbiturates Screen NEG Urine Amphetamines Screen NEG Urine Benzodiazepines Screen NEG Urine Cocaine Screen NEG Urine Cannabinoids Screen NEG Problem Qualifiers (1) HTN (hypertension): Qualified Codes: I10 - Essential (primary) hypertension (2) HLD (hyperlipidemia): Qualified Codes: E78.5 - Hyperlipidemia, unspecified Pradeep Holder MD Jul 29, 2017 09:46
[2017-07-29] MEDS ORDERED: LORazepam 1 MG TAB PO PRN (10:00)
[2017-07-29] MEDS: ENALAPRILAT 2.5 MG/2 ML VIAL IV PUSH PRN (10:37)
[2017-07-29 17:50] LABS: METHYLMALONIC ACID 0.1 nmol/mL (<=0.40)
[2017-07-30] VITALS (15 sets, daily range): BP systolic 163–201; BP diastolic 82–106; PULSE 70–105; RESP 17–20; TEMP 97.3–99; O2SAT 94–98
[2017-07-30] MEDS: ENALAPRILAT 2.5 MG/2 ML VIAL IV PUSH PRN (01:00)
[2017-07-30] MEDS: SODIUM CHLOR 0.9% 1000 ML INJ 1,000 ML IV SCH ×3 (01:05→20:39)
[2017-07-30] MEDS ORDERED: cloNIDine HCL 0.1 MG TAB PO ONE (04:45)
[2017-07-30] MEDS: SODIUM CHLORIDE 0.9% FLUSH 10 ML FLUSH IV FLUSH SCH ×2 (09:00→20:12)
--- NOTE | 2017-07-30 09:02 | HHI.PR ---
Subjective Remarks Follow up CVA, hypertension. Patient fell overnight. Opened a wound that was present on his right knee, but no other injuries reported. Patient denies pain. Per nursing, he is more sedated/confused today. Objective Vitals Vital Signs Date Time Temp Pulse Resp B/P (MAP) Pulse Ox O2 Delivery O2 Flow Rate FiO2 07/30/17 08:10 99.0 78 17 163/100 (121) 96 07/30/17 05:53 179/92 (121) 07/30/17 04:30 181/106 (131) 07/30/17 03:30 98.3 77 18 167/100 (122) 98 07/30/17 02:31 98.7 76 18 168/99 (122) 98 07/30/17 01:30 98.0 70 20 166/82 (110) 97 07/30/17 01:05 97.3 72 18 191/93 (125) 97 07/30/17 00:30 97.9 72 18 201/90 (127) 96 07/30/17 00:15 97.9 81 18 194/93 (126) 94 07/29/17 20:00 98.9 86 20 186/88 (120) 97 07/29/17 15:49 98.0 75 17 141/93 (109) 97 07/29/17 15:03 86 07/29/17 11:54 98.3 73 17 162/92 (115) 98 07/29/17 11:30 97.4 73 18 189/97 (127) 97 07/29/17 10:54 75 I/O 07/29/17 07/29/17 07/29/17 07/30/17 07/30/17 07/30/17 07:00 15:00 23:00 07:00 15:00 23:00 Intake Total 1451 ml 480 ml 1000 ml 962 ml Output Total 400 ml 1650 ml 550 ml 700 ml 200 ml Balance 1051 ml -1170 ml 450 ml 262 ml -200 ml Intake Oral 451 ml 480 ml IV Total 1000 ml 1000 ml 962 ml Output Urine Total 400 ml 1650 ml 550 ml 700 ml 200 ml # Voids 2 # Bowel Movements 1 1 Result Diagram: 07/29/17 0324 07/30/17 0152 Imaging Last Impressions Neck Magnetic Resonance Angiography 07/27/17 0803 Signed Impressions: Service Date/Time: July 09:07 - CONCLUSION: 1. Eccentric plaque in the proximal right internal carotid artery with resultant approximately 20-30%% stenosis. 2. Patent left carotid artery without significant flow-limiting stenosis. 3. Patent vertebral arteries without significant flow-limiting stenosis. Israel Keenan MD Brain MRI 07/27/17 0803 Signed Impressions: Service Date/Time: July 09:07 - CONCLUSION: Infarct in the left external capsule. No significant mass or mass effect. Theodore Lanier MD Head Magnetic Resonance Angiography 07/27/17 0000 Signed Impressions: Service Date/Time: July 09:07 - CONCLUSION: Slight narrowing of the distal left middle cerebral artery, otherwise unremarkable exam. Theodore Lanier MD Head CT 07/26/17 1547 Signed Impressions: Service Date/Time: Wednesday, July 26, 2017 16:09 - CONCLUSION: 1. Chronic small vessel ischemic change. 2. No acute intracranial abnormality. Roman Payton Jr., MD Chest X-Ray 07/26/17 1547 Signed Impressions: Service Date/Time: Wednesday, July 26, 2017 16:18 - CONCLUSION: 1. No acute cardiopulmonary disease. Israel Keenan MD Carotid Artery Ultrasound 07/26/17 0000 Signed Impressions: Service Date/Time: Wednesday, July 26, 2017 21:18 - CONCLUSION: Right carotid bulb plaque formation with hemodynamic profile on both sides characteristic of less than 50%% stenosis. Roman Poole MD Objective Remarks General: Elderly male in no acute distress. Heart: Regular rate and rhythm. No murmur. Lungs: Clear to auscultation bilaterally. No wheezes, rales, or rhonchi. Breathing is nonlabored. Abdomen: Soft, nontender, nondistended. Extremities: No lower extremity edema. Psych: Sleeping/sedated. Difficult to awaken. Patient exhibits dysarthria. He is oriented to person, year, month. Procedures none Urinary Catheter: No Vascular Central Line Catheter: No A/P Assessment and Plan 1. CVA: Patient has residual right-sided weakness and right facial droop. He also has dysarthria. Appreciate neurology recommendations. Continue aspirin. Continue PT/OT/ST. 2. Hyponatremia: Likely chronic secondary to alcoholism. So likely a component of hypovolemia/dehydration. Continue IV fluids. Monitor labs. 3. Hypertension: Allow permissive hypertension at this time. Vasotec as needed for BP 200/100. 4. Hyperlipidemia: Statin. 5. Hypothyroidism: TSH is normal. Free T4 is slightly high. 6. Alcohol abuse history: CIWA protocol discontinued. Patient has been counseled. 7. Insomnia: Patient taking 1 mg of Ativan at bedtime. He is quite sedated today and this may have contributed to his fall overnight. Decrease Ativan dose. 8. DVT prophylaxis: ABELINO Bains. Discharge Planning Pending further improvement, neurology clearance. Dhruv Carl MD Jul 30, 2017 09:02
[2017-07-30] MEDS: ATORVASTATIN 40 MG TAB PO SCH (09:54)
[2017-07-30] MEDS: ASPIRIN EC 325 MG TABEC PO SCH (09:54)
--- NOTE | 2017-07-30 11:19 | HHI.PR ---
Review/Management Diagnosis/Plan: (1) Acute ischemic left MCA stroke ICD Codes: I63.512 - Cerebral infarction due to unspecified occlusion or stenosis of left middle cerebral artery Status: Acute Plan: aspirin/statin recs neuro stable ativan dose reduced fall precautions permissive htn ok to sit up in bed needs to go to rehab (2) HTN (hypertension) ICD Codes: I10 - Essential (primary) hypertension Status: Chronic (3) HLD (hyperlipidemia) ICD Codes: E78.5 - Hyperlipidemia, unspecified Status: Chronic Subjective Subjective Comments fell last night trying to get out of bed. denies headache,spine pain,limb pain. feels the same still wants ativan for sleep No headache No chest pain No dyspnea Active Medications Current Medications Medications (Trade) Dose Ordered Sig/Luther Route Start Time Stop Time Status Last Admin (NS Flush) 2 ml BID IV FLUSH 07/26/17 21:00 07/30/17 09:00 (NS Flush) 2 ml UNSCH PRN IV FLUSH 07/26/17 18:30 (D50w (Vial) Inj) 50 ml UNSCH PRN IV PUSH 07/26/17 18:30 (Glucagon Inj) 1 mg UNSCH PRN OTHER 07/26/17 18:30 (Ecotrin Ec) 325 mg DAILY PO 07/27/17 09:00 07/30/17 09:54 (Lipitor) 40 mg DAILY PO 07/29/17 09:00 07/30/17 09:54 Sodium Chloride 1,000 ml @ 75 mls/hr [id number] IV 07/28/17 16:00 07/30/17 09:54 (Vasotec Inj) 2.5 mg Q6H PRN IV PUSH 07/29/17 09:15 07/30/17 01:00 (Ativan) 0.5 mg HS PRN PO 07/30/17 21:00 Allergies Allergies Coded Allergies No Known Allergies (Sfsiexeyvq16/21/17) Review of Systems All other ROS: ROS reviewed as documented in chart Exam I&O / VS 07/30/17 07/30/17 07/31/17 15:00 23:00 07:00 Intake Total 1000 ml Output Total 200 ml Balance 800 ml IV Total 1000 ml Output Urine Total 200 ml Vital Signs Date Time Temp Pulse Resp B/P (MAP) Pulse Ox O2 Delivery O2 Flow Rate FiO2 07/30/17 11:11 74 07/30/17 08:10 99.0 78 17 163/100 (121) 96 07/30/17 05:53 179/92 (121) 07/30/17 04:30 181/106 (131) 07/30/17 03:30 98.3 77 18 167/100 (122) 98 07/30/17 02:31 98.7 76 18 168/99 (122) 98 07/30/17 01:30 98.0 70 20 166/82 (110) 97 07/30/17 01:05 97.3 72 18 191/93 (125) 97 07/30/17 00:30 97.9 72 18 201/90 (127) 96 07/30/17 00:15 97.9 81 18 194/93 (126) 94 07/29/17 20:00 98.9 86 20 186/88 (120) 97 07/29/17 15:49 98.0 75 17 141/93 (109) 97 07/29/17 15:03 86 07/29/17 11:54 98.3 73 17 162/92 (115) 98 07/29/17 11:30 97.4 73 18 189/97 (127) 97 General: Alert and Oriented, No acute distress Respiratory: Non-labored respirations Neurologic: Alert, Oriented Psychiatric: Cooperative Exam Comments ox 3, follows, mildly dysarthric speech, eomi, ou 4-3mm, mild reduced rt nlf, rt hemiparesis 3/5 ataxic Objective Micro and Labs Laboratory Tests Test 07/30/17 01:52 Sodium Level 125 Problem Qualifiers (1) HTN (hypertension): Qualified Codes: I10 - Essential (primary) hypertension (2) HLD (hyperlipidemia): Qualified Codes: E78.5 - Hyperlipidemia, unspecified Pradeep Holder MD Jul 30, 2017 11:19
[2017-07-31] VITALS (9 sets, daily range): BP systolic 133–181; BP diastolic 61–104; PULSE 64–90; RESP 18–20; TEMP 97.4–98.5; O2SAT 95–98
[2017-07-31] MEDS: SODIUM CHLOR 0.9% 1000 ML INJ 1,000 ML IV SCH ×2 (00:14→23:19)
[2017-07-31 07:45] LABS: BICARBONATE 24.2 MEQ/L (21.0-32.0); CALCIUM 8.2 MG/DL (8.5-10.1); CREATININE 0.71 MG/DL (0.60-1.30)
[2017-07-31] MEDS: ASPIRIN EC 325 MG TABEC PO SCH (08:57)
[2017-07-31] MEDS: ATORVASTATIN 40 MG TAB PO SCH (08:57)
--- NOTE | 2017-07-31 10:19 | HHI.PR ---
Review/Management Diagnosis/Plan: (1) Acute ischemic left MCA stroke ICD Codes: I63.512 - Cerebral infarction due to unspecified occlusion or stenosis of left middle cerebral artery Status: Acute Plan: aspirin/statin recs neuro stable needs to go to rehab (2) HTN (hypertension) ICD Codes: I10 - Essential (primary) hypertension Status: Chronic (3) HLD (hyperlipidemia) ICD Codes: E78.5 - Hyperlipidemia, unspecified Status: Chronic Subjective Subjective Comments No acute events reported No headache No chest pain No dyspnea Active Medications Current Medications Medications (Trade) Dose Ordered Sig/Luther Route Start Time Stop Time Status Last Admin (NS Flush) 2 ml BID IV FLUSH 07/26/17 21:00 07/30/17 20:12 (NS Flush) 2 ml UNSCH PRN IV FLUSH 07/26/17 18:30 (D50w (Vial) Inj) 50 ml UNSCH PRN IV PUSH 07/26/17 18:30 (Glucagon Inj) 1 mg UNSCH PRN OTHER 07/26/17 18:30 (Ecotrin Ec) 325 mg DAILY PO 07/27/17 09:00 07/31/17 08:57 (Lipitor) 40 mg DAILY PO 07/29/17 09:00 07/31/17 08:57 Sodium Chloride 1,000 ml @ 75 mls/hr [id number] IV 07/28/17 16:00 07/31/17 00:14 (Vasotec Inj) 2.5 mg Q6H PRN IV PUSH 07/29/17 09:15 07/30/17 01:00 (Ativan) 0.5 mg HS PRN PO 07/30/17 21:00 Allergies Allergies Coded Allergies No Known Allergies (Ypyshomnxr27/21/17) Review of Systems All other ROS: ROS reviewed as documented in chart Exam I&O / VS Vital Signs Date Time Temp Pulse Resp B/P (MAP) Pulse Ox O2 Delivery O2 Flow Rate FiO2 07/31/17 08:00 98.1 69 19 181/104 (129) 95 07/31/17 04:00 97.8 80 18 164/97 (119) 97 07/31/17 04:00 75 07/31/17 00:07 87 07/31/17 00:00 97.4 83 20 150/61 (90) 95 07/30/17 20:08 80 07/30/17 20:00 98.5 79 18 189/97 (127) 96 07/30/17 18:14 85 07/30/17 16:00 105 07/30/17 15:51 97.8 80 17 176/94 (121) 97 07/30/17 11:11 74 General: Alert and Oriented, No acute distress Respiratory: Non-labored respirations Neurologic: Alert, Oriented Psychiatric: Cooperative Exam Comments ox 3, follows, sitting up in chair, mildly dysarthric speech, eomi, ou 4-3mm, mild reduced rt nlf, rt hemiparesis 3+/5 ataxic Objective Micro and Labs Laboratory Tests Test 07/31/17 05:59 Blood Urea Nitrogen 8 Creatinine 0.71 Random Glucose 91 Calcium Level 8.2 Sodium Level 126 Potassium Level 3.6 Chloride Level 93 Carbon Dioxide Level 24.2 Anion Gap 9 Estimat Glomerular Filtration Rate 110 Problem Qualifiers (1) HTN (hypertension): Qualified Codes: I10 - Essential (primary) hypertension (2) HLD (hyperlipidemia): Qualified Codes: E78.5 - Hyperlipidemia, unspecified Pradeep Holder MD Jul 31, 2017 10:19
--- NOTE | 2017-07-31 10:32 | HM ---
Date Performed: 07/27/2017 Time Performed: 18:07:00 HOOKUP DATE: 07/27/17 06:07:00 PM Priscila ANALYSIS START TIME: 07/27/2017 6:12:00 PM ANALYSIS END TIME: 07/28/2017 6:16:00 PM PATIENT AGE: 71 PATIENT HEIGHT PATIENT WEIGHT DRUG LIST PATIENT DIAGNOSIS: cva TEST NARRATIVE: The patient's average heart rate was 87 BPM. Heart rates greater than 120 B PM were noted < 1% of the time. No episodes of bradycardia were noted. No pauses exceeding 2.0 s econds were noted. No episodes of ST depression (defined as -1.0 mm or more) were noted in channe l 1. No episodes of ST depression (defined as -1.0 mm or more) were noted in channel 2. No episodes of ST depression (defined as -1.0 mm or more) were noted in channel 3. NO DIARY RETURNED TEST INTERPRETATION: Sinus rhythm Frequent PACs Nonsustained atrial tachycardia Infrequent PVCs Signed by : Chelsey Washington
[2017-07-31] MEDS ORDERED: ATOR40TA16 PO (10:59)
[2017-07-31] MEDS ORDERED: ASPI325T33 PO (10:59)
--- NOTE | 2017-07-31 10:59 | HHI.DCPOC ---
Discharge Care Plan Diagnosis: (1) HTN (hypertension) (2) HLD (hyperlipidemia) (3) Acute ischemic left MCA stroke Goals to Promote Your Health * To prevent worsening of your condition and complications * To maintain your health at the optimal level Directions to Meet Your Goals Take your medications as prescribed Follow your dietary instruction Follow activity as directed Keep your appointments as scheduled Take your immunizations and boosters as scheduled If your symptoms worsen call your PCP, if no PCP go to Urgent Care Center or Emergency Room Smoking is Dangerous to Your Health. Avoid second hand smoke Call the 24-hour hour crisis hotline for domestic abuse at Dhruv Carl MD Jul 31, 2017 10:59
--- NOTE | 2017-07-31 11:05 | HHI.DS ---
Discharge Summary Admission Date Jul 26, 2017 at 21:14 Discharge Date: Jul 31, 2017 Admitting Diagnosis CVA (1) HTN (hypertension) ICD Code: I10 - Essential (primary) hypertension Status: Chronic (2) HLD (hyperlipidemia) ICD Code: E78.5 - Hyperlipidemia, unspecified Status: Chronic (3) Acute ischemic left MCA stroke ICD Code: I63.512 - Cerebral infarction due to unspecified occlusion or stenosis of left middle cerebral artery Status: Acute (4) Hyponatremia ICD Code: E87.1 - Hypo-osmolality and hyponatremia Procedures none Brief History - From Admission 71-year-old male with a past medical history significant for hypertension and hypothyroidism was brought to the emergency department for evaluation of right- sided deficits. The patient reports that yesterday he fell asleep and when he awoke his right arm was numb and weak. He also states that yesterday he fell while he was walking because he had no balance. The patient has slurred speech which was noticed by his niece and he was encouraged to go to the emergency department for further evaluation. He remains asymptomatic with slurred speech , right-sided facial droop and right upper and lower extremity weakness. Head CT was negative for acute intercranial abnormality but did show small vessel ischemic change. CBC/BMP: 07/29/17 0324 07/31/17 0559 Significant Findings Laboratory Tests Test 07/28/17 13:33 07/29/17 03:24 07/29/17 06:46 07/30/17 01:52 Blood Urea Nitrogen 6 MG/DL (7-18) Random Glucose 133 MG/DL (74-106) Calcium Level 8.0 MG/DL (8.5-10.1) 7.9 MG/DL (8.5-10.1) Sodium Level 123 MEQ/L (136-145) 128 MEQ/L (136-145) 125 MEQ/L (136-145) Potassium Level 3.4 MEQ/L (3.5-5.1) Chloride Level 92 MEQ/L (98-107) 95 MEQ/L (98-107) Carbon Dioxide Level 20.7 MEQ/L (21.0-32.0) Red Blood Count 4.22 MIL/MM3 (4.50-5.90) Hematocrit 37.9 % (39.0-51.0) Monocytes (%) (Auto) 14.7 % (0.0-8.0) Monocytes # (Auto) 1.3 TH/MM3 (0-0.9) Albumin 3.2 GM/DL (3.4-5.0) Phosphorus Level 2.1 MG/DL (2.5-4.9) Urine Mucus FEW /lpf (OCC) Test 07/31/17 05:59 Calcium Level 8.2 MG/DL (8.5-10.1) Sodium Level 126 MEQ/L (136-145) Chloride Level 93 MEQ/L (98-107) Imaging Last Impressions Neck Magnetic Resonance Angiography 07/27/17 0803 Signed Impressions: Service Date/Time: July 09:07 - CONCLUSION: 1. Eccentric plaque in the proximal right internal carotid artery with resultant approximately 20-30%% stenosis. 2. Patent left carotid artery without significant flow-limiting stenosis. 3. Patent vertebral arteries without significant flow-limiting stenosis. Israel Keenan MD Brain MRI 07/27/17 0803 Signed Impressions: Service Date/Time: July 09:07 - CONCLUSION: Infarct in the left external capsule. No significant mass or mass effect. Theodore Lanier MD Head Magnetic Resonance Angiography 07/27/17 0000 Signed Impressions: Service Date/Time: July 09:07 - CONCLUSION: Slight narrowing of the distal left middle cerebral artery, otherwise unremarkable exam. Theodore Lanier MD Head CT 07/26/17 1547 Signed Impressions: Service Date/Time: Wednesday, July 26, 2017 16:09 - CONCLUSION: 1. Chronic small vessel ischemic change. 2. No acute intracranial abnormality. Roman Payton Jr., MD Chest X-Ray 07/26/17 1547 Signed Impressions: Service Date/Time: Wednesday, July 26, 2017 16:18 - CONCLUSION: 1. No acute cardiopulmonary disease. Israel Keenan MD Carotid Artery Ultrasound 07/26/17 0000 Signed Impressions: Service Date/Time: Wednesday, July 26, 2017 21:18 - CONCLUSION: Right carotid bulb plaque formation with hemodynamic profile on both sides characteristic of less than 50%% stenosis. Roman Poole MD PE at Discharge General: Elderly male in no acute distress. Heart: Regular rate and rhythm. No murmur. Lungs: Clear to auscultation bilaterally. No wheezes, rales, or rhonchi. Breathing is nonlabored. Abdomen: Soft, nontender, nondistended. Extremities: No lower extremity edema. Psych: Sleeping/sedated. Difficult to awaken. Patient exhibits dysarthria. He is oriented to person, year, month. Pt update on day of discharge The patient states that he feels "good" today. Confusion improved. No specific complaints at this time. Hospital Course Patient was admitted for further evaluation and management of CVA. Neurology was consulted. PT/OT/ST evals were done. Patient was placed on CIWA protocol for history of alcohol abuse. Hyponatremia was felt to be secondary to history of alcoholism. He had some confusion felt to be secondary to Ativan. Symptoms improved. He was cleared for discharge to SNF by neurology. Pt Condition on Discharge: Stable Discharge Disposition: Discharge to SNF Discharge Time: > 30 minutes Discharge Instructions DIET: Follow Instructions for: As Tolerated, No Restrictions Speech Therapy-Diet Recommends: Regular Activities you can perform: Regular-No Restrictions Follow up Referrals: Neurology - 1 Week with Sachin Denson MD PCP Follow-up - 2 Weeks New Medications: Aspirin DR (Aspirin EC) 325 Mg Tabdr 325 MG PO DAILY for Blood Clot Prevention, #30 TAB Atorvastatin (Atorvastatin) 40 Mg Tab 40 MG PO DAILY for Cholesterol Management, #30 TAB Continued Medications: Atenolol (Atenolol) 50 Mg Tab 50 MG PO BID for Blood Pressure Management, #14 TAB 0 Refills Dhruv Carl MD Jul 31, 2017 11:05
[2017-07-31] MEDS: SODIUM CHLORIDE 0.9% FLUSH 10 ML FLUSH IV FLUSH SCH (21:00)
[2017-07-31] MEDS ORDERED: ATENOLOL 50 MG TAB PO SCH (21:00)
[2017-07-31] MEDS: LORazepam 0.5 MG TAB PO PRN (21:03)
[2017-08-01] VITALS (11 sets, daily range): BP systolic 130–191; BP diastolic 77–96; PULSE 60–68; RESP 18–20; TEMP 98–99; O2SAT 94–99
[2017-08-01] MEDS ORDERED: PILL SPLITTER OTHER PRN (06:00)
--- NOTE | 2017-08-01 07:31 | HHI.PR ---
Subjective Remarks sr Objective Vital Signs Date Time Temp Pulse Resp B/P (MAP) Pulse Ox O2 Delivery O2 Flow Rate FiO2 08/01/17 05:24 99.0 61 20 191/93 (125) 96 08/01/17 05:05 62 08/01/17 00:41 98.2 60 18 183/96 (125) 96 07/31/17 23:47 64 07/31/17 20:47 98.5 88 18 166/99 (121) 95 07/31/17 19:41 90 07/31/17 12:00 97.5 73 18 170/77 (108) 97 07/31/17 08:00 98.1 69 19 181/104 (129) 95 I/O 07/31/17 07/31/17 07/31/17 08/01/17 08/01/17 08/01/17 07:00 15:00 23:00 07:00 15:00 23:00 Intake Total 720 ml Output Total 1500 ml 400 ml Balance -1500 ml 320 ml Intake Oral 720 ml Output Urine Total 1500 ml 400 ml # Bowel Movements 1 Result Diagram: 07/29/17 0324 07/31/17 0559 Objective Remarks speech slurred vff very ataxic rue and now fingers4/5 rle 4+ tricep 5- right Assessment and Plan Assessment and Plan imp mra neck neg echo nl x la 42 will need cardionet o/p few pauses plan is 325 as and he needs statin ellie started na low check ct chest make sure no mass needs bp down to 160/ for a week then 120/ have cards see with pauses on ekg to 2.2 seconds ow ready for rehab when bp lower Sachin Denson MD Aug 01, 2017 07:31
[2017-08-01] MEDS: SODIUM CHLOR 0.9% 1000 ML INJ 1,000 ML IV SCH ×3 (08:00→23:00)
[2017-08-01] MEDS: ATORVASTATIN 40 MG TAB PO SCH (08:32)
[2017-08-01] MEDS: ASPIRIN EC 325 MG TABEC PO SCH (08:32)
[2017-08-01] MEDS ORDERED: ATENOLOL 50 MG TAB PO SCH (09:00)
[2017-08-01] MEDS ORDERED: IOHEXOL 350 MG/ML 10 ML VIAL (for RAD DIAG) IVCONTRAST ONE (09:37)
--- NOTE | 2017-08-01 09:45 | RADRPT ---
EXAM DATE/TIME: 08/01/2017 09:16 [facility] COMPARISON: No previous studies available for comparison. INDICATIONS : Evaluate for mass. IV CONTRAST: 75 cc Omnipaque 350 (iohexol) IV RADIATION DOSE: 5.12 CTDIvol (mGy) MEDICAL HISTORY : Hypertension. Cerebrovascular disease. SURGICAL HISTORY : None. ENCOUNTER: Initial ACUITY: 1 day PAIN SCALE: 0/10 LOCATION: chest TECHNIQUE: Volumetric scanning of the chest was performed. Using automated exposure control and adjustment of t he mA and/or kV according to patient size, radiation dose was kept as low as reasonably achievable to obtain optimal diagnostic quality images. DICOM format image data is available electronically for review and comparison. Follow-up recommendations for detected pulmonary nodules are based at a minimum on nodule size and pa tient risk factors according to Fleischner Society Guidelines. FINDINGS: LUNGS: There is no consolidation or pneumothorax. No concerning pulmonary nodule is visualized. PLEURA: There is no pleural thickening or pleural effusion. MEDIASTINUM: The heart and great vessels demonstrate no acute abnormality. There is no mediastinal or hilar lymph adenopathy. Minimal dilatation of the ascending aorta dilated to 4.4 cm. Descending aorta measures 2.5. AXILLAE: Within normal limits. No lymphadenopathy. SKELETAL: Moderate degenerative changes thoracic spine. MISCELLANEOUS: The visualized upper abdominal organs demonstrate no acute abnormality. CONCLUSION: There are no suspicious lung lesions identified.. Aneurysmal dilatation ascending aorta Alfie Kee MD FACR on August 01, 2017 at 9:40 Board Certified Radiologist. This report was verified electronically.
--- NOTE | 2017-08-01 10:19 | HHI.PR ---
Subjective Remarks Late entry. Date of visit 07/31/17 at approximately 11 AM. Follow up CVA. Patient has no specific complaints. Objective Vitals Vital Signs Date Time Temp Pulse Resp B/P (MAP) Pulse Ox O2 Delivery O2 Flow Rate FiO2 08/01/17 08:42 98.0 60 18 144/77 (99) 94 08/01/17 05:24 99.0 61 20 191/93 (125) 96 08/01/17 05:05 62 08/01/17 00:41 98.2 60 18 183/96 (125) 96 07/31/17 23:47 64 07/31/17 20:47 98.5 88 18 166/99 (121) 95 07/31/17 19:41 90 07/31/17 12:00 97.5 73 18 170/77 (108) 97 I/O 07/31/17 07/31/17 07/31/17 08/01/17 08/01/17 08/01/17 07:00 15:00 23:00 07:00 15:00 23:00 Intake Total 720 ml 500 ml Output Total 1500 ml 400 ml Balance -1500 ml 320 ml 500 ml Intake Oral 720 ml IV Total 500 ml Output Urine Total 1500 ml 400 ml # Bowel Movements 1 Result Diagram: 07/29/17 0324 07/31/17 0559 Imaging Last Impressions Chest CT 08/01/17 0000 Signed Impressions: Service Date/Time: Tuesday, August 01, 2017 09:16 - CONCLUSION: There are no suspicious lung lesions identified.. Aneurysmal dilatation ascending aorta Alfie Kee MD FACR Neck Magnetic Resonance Angiography 07/27/17 0803 Signed Impressions: Service Date/Time: July 09:07 - CONCLUSION: 1. Eccentric plaque in the proximal right internal carotid artery with resultant approximately 20-30%% stenosis. 2. Patent left carotid artery without significant flow-limiting stenosis. 3. Patent vertebral arteries without significant flow-limiting stenosis. Israel Keenan MD Brain MRI 07/27/17 0803 Signed Impressions: Service Date/Time: July 09:07 - CONCLUSION: Infarct in the left external capsule. No significant mass or mass effect. Theodore Lanier MD Head Magnetic Resonance Angiography 07/27/17 0000 Signed Impressions: Service Date/Time: July 09:07 - CONCLUSION: Slight narrowing of the distal left middle cerebral artery, otherwise unremarkable exam. Theodore Lanier MD Head CT 07/26/17 1547 Signed Impressions: Service Date/Time: Wednesday, July 26, 2017 16:09 - CONCLUSION: 1. Chronic small vessel ischemic change. 2. No acute intracranial abnormality. Roman Payton Jr., MD Chest X-Ray 07/26/17 1547 Signed Impressions: Service Date/Time: Wednesday, July 26, 2017 16:18 - CONCLUSION: 1. No acute cardiopulmonary disease. Israel Keenan MD Carotid Artery Ultrasound 07/26/17 0000 Signed Impressions: Service Date/Time: Wednesday, July 26, 2017 21:18 - CONCLUSION: Right carotid bulb plaque formation with hemodynamic profile on both sides characteristic of less than 50%% stenosis. Roman Poole MD Objective Remarks General: Elderly male in no acute distress. Heart: Regular rate and rhythm. Lungs: Clear to auscultation bilaterally. No wheezes, rales, or rhonchi. Breathing is nonlabored. Abdomen: Soft, nontender, nondistended. Extremities: No lower extremity edema. Psych: Awake, alert, oriented. Procedures none Urinary Catheter: No Vascular Central Line Catheter: No A/P Problem List: (1) HTN (hypertension) ICD Code: I10 - Essential (primary) hypertension Status: Chronic (2) HLD (hyperlipidemia) ICD Code: E78.5 - Hyperlipidemia, unspecified Status: Chronic (3) Acute ischemic left MCA stroke ICD Code: I63.512 - Cerebral infarction due to unspecified occlusion or stenosis of left middle cerebral artery Status: Acute (4) Hyponatremia ICD Code: E87.1 - Hypo-osmolality and hyponatremia Assessment and Plan 1. CVA: Patient has residual right-sided weakness and right facial droop. He also has dysarthria. Appreciate neurology recommendations. Continue aspirin. Continue PT/OT/ST. clinically improving. 2. Hyponatremia: Likely chronic secondary to alcoholism. So likely a component of hypovolemia/dehydration. Continue IV fluids. Monitor labs. 3. Hypertension: Allow permissive hypertension at this time. Vasotec as needed for BP 200/100. 4. Hyperlipidemia: Statin. 5. Hypothyroidism: TSH is normal. Free T4 is slightly high. 6. Alcohol abuse history: CIWA protocol discontinued. Patient has been counseled. 7. Insomnia: Ativan as needed at bedtime. 8. DVT prophylaxis: ABELINO Bains. Discharge Planning Plan for discharge to SNF when arrangements can be made. Problem Qualifiers (1) HTN (hypertension): Qualified Codes: I10 - Essential (primary) hypertension (2) HLD (hyperlipidemia): Qualified Codes: E78.5 - Hyperlipidemia, unspecified Dhruv Carl MD Aug 01, 2017 10:19
--- NOTE | 2017-08-01 10:28 | HHI.PR ---
Subjective Remarks Follow up CVA, hyponatremia. The patient apparently had pauses noted on telemetry overnight. He remained asymptomatic. Denies chest pain, dyspnea, lightheadedness, dizziness. Objective Vitals Vital Signs Date Time Temp Pulse Resp B/P (MAP) Pulse Ox O2 Delivery O2 Flow Rate FiO2 08/01/17 08:42 98.0 60 18 144/77 (99) 94 08/01/17 05:24 99.0 61 20 191/93 (125) 96 08/01/17 05:05 62 08/01/17 00:41 98.2 60 18 183/96 (125) 96 07/31/17 23:47 64 07/31/17 20:47 98.5 88 18 166/99 (121) 95 07/31/17 19:41 90 07/31/17 12:00 97.5 73 18 170/77 (108) 97 I/O 07/31/17 07/31/17 07/31/17 08/01/17 08/01/17 08/01/17 07:00 15:00 23:00 07:00 15:00 23:00 Intake Total 720 ml 500 ml Output Total 1500 ml 400 ml Balance -1500 ml 320 ml 500 ml Intake Oral 720 ml IV Total 500 ml Output Urine Total 1500 ml 400 ml # Bowel Movements 1 Result Diagram: 07/29/17 0324 07/31/17 0559 Imaging Last Impressions Chest CT 08/01/17 0000 Signed Impressions: Service Date/Time: Tuesday, August 01, 2017 09:16 - CONCLUSION: There are no suspicious lung lesions identified.. Aneurysmal dilatation ascending aorta Alfie Kee MD FACR Neck Magnetic Resonance Angiography 07/27/17 08 Signed Impressions: Service Date/Time: July 09:07 - CONCLUSION: 1. Eccentric plaque in the proximal right internal carotid artery with resultant approximately 20-30%% stenosis. 2. Patent left carotid artery without significant flow-limiting stenosis. 3. Patent vertebral arteries without significant flow-limiting stenosis. Israel Keenan MD Brain MRI 07/27/17802 Signed Impressions: Service Date/Time: July 09:07 - CONCLUSION: Infarct in the left external capsule. No significant mass or mass effect. Theodore Lanier MD Head Magnetic Resonance Angiography 07/27/17 0000 Signed Impressions: Service Date/Time: July 09:07 - CONCLUSION: Slight narrowing of the distal left middle cerebral artery, otherwise unremarkable exam. Theodore Lanier MD Head CT 07/26/17 1547 Signed Impressions: Service Date/Time: Wednesday, July 26, 2017 16:09 - CONCLUSION: 1. Chronic small vessel ischemic change. 2. No acute intracranial abnormality. Roman Payton Jr., MD Chest X-Ray 07/26/17 1547 Signed Impressions: Service Date/Time: Wednesday, July 26, 2017 16:18 - CONCLUSION: 1. No acute cardiopulmonary disease. Israel Keenan MD Carotid Artery Ultrasound 07/26/17 0000 Signed Impressions: Service Date/Time: Wednesday, July 26, 2017 21:18 - CONCLUSION: Right carotid bulb plaque formation with hemodynamic profile on both sides characteristic of less than 50%% stenosis. Roman Poole MD Objective Remarks General: Elderly male in no acute distress. Heart: Regular rate and rhythm. Lungs: Clear to auscultation bilaterally. No wheezes, rales, or rhonchi. Breathing is nonlabored. Abdomen: Soft, nontender, nondistended. Extremities: No lower extremity edema. Psych: Alert and oriented. Answers questions appropriately. Procedures none Urinary Catheter: No Vascular Central Line Catheter: No A/P Problem List: (1) HTN (hypertension) ICD Code: I10 - Essential (primary) hypertension Status: Chronic (2) HLD (hyperlipidemia) ICD Code: E78.5 - Hyperlipidemia, unspecified Status: Chronic (3) Acute ischemic left MCA stroke ICD Code: I63.512 - Cerebral infarction due to unspecified occlusion or stenosis of left middle cerebral artery Status: Acute (4) Hyponatremia ICD Code: E87.1 - Hypo-osmolality and hyponatremia Assessment and Plan 1. CVA: Patient has residual right-sided weakness and right facial droop. He also has dysarthria. Appreciate neurology recommendations. Continue aspirin. Continue PT/OT/ST. Clinically improving. 2. Hyponatremia: Likely chronic secondary to alcoholism. So likely a component of hypovolemia/dehydration. Continue IV fluids. Monitor labs. CT chest is negative for mass. 3. Hypertension: Atenolol restarted yesterday. Discontinued due to cardiac pause. Start lisinopril. 4. Hyperlipidemia: Statin. 5. Hypothyroidism: TSH is normal. Free T4 is slightly high. 6. Alcohol abuse history: CIWA protocol discontinued. Patient has been counseled. 7. Insomnia: Ativan as needed at bedtime. 8. Thoracic aortic aneurysm: Recommend repeat CT in 6 months. 9. DVT prophylaxis: ABELINO Bains. Discharge Planning Discharge held for further workup of pauses noted on telemetry. Problem Qualifiers (1) HTN (hypertension): Qualified Codes: I10 - Essential (primary) hypertension (2) HLD (hyperlipidemia): Qualified Codes: E78.5 - Hyperlipidemia, unspecified Dhruv Carl MD Aug 01, 2017 10:28
[2017-08-01] MEDS: LISINOPRIL 10 MG TAB PO SCH (12:42)
--- NOTE | 2017-08-01 20:55 | MB ---
cc: RL SANCHEZ MD DATE OF : 47 DATE OF CONSULTATION: 08/01/2017 REASON FOR CONSULTATION: HISTORY OF PRESENT ILLNESS: The patient is a 71 year-old white male with a history of hypertension, hypothyroidism, woke up with right arm numbness and weakness. He also had difficulty walking because he was off balance. He had slurred speech, right-sided facial droop and right upper and lower extremity weakness. Head CT showed small vessel ischemic changes, no acute disease. MRI showed infarct in the left external capsule. The patient has no chest pain, no shortness of breath. He has history of significant speech impairment and right-sided weakness. PAST MEDICAL HISTORY Positive for: Hypertension Hypothyroidism No history of diabetes mellitus, dyslipidemia, coronary artery disease or previous CVA. MEDICATIONS: 1. Aspirin 325 milligrams p.o. daily. 2. Atenolol 50 milligrams twice a day. 3. Atorvastatin 40 milligrams p.o. daily. ALLERGIES: NONE. SOCIAL HISTORY: The patient does not smoke. He quit smoking 50 years ago. He drinks beer three times a week. FAMILY HISTORY: Negative for heart disease. REVIEW OF SYSTEMS: Otherwise negative. PHYSICAL EXAMINATION: VITAL SIGNS: Blood pressure 130/77, pulse 66 and regular. HEENT: Negative. Neck: 2+ carotid upstrokes. No bruits. Lungs: Clear. Heart: Regular with no murmurs, rubs, or gallops. Abdomen: Soft, nontender. Extremities: Without edema. 2+ distal pulses. Neurologic: Right-sided weakness and speech impairment. EKG was reviewed and showed marked normal sinus rhythm, left axis, left anterior fascicular block and no acute changes. LABORATORY DATA Hemoglobin 13.3, potassium 3.6, creatinine 0.7. DIAGNOSIS 1. Acute CVA. 2. Hypertension. 3. Hypothyroidism. 4. Dyslipidemia. 5. Sinus pauses. Telemetry shows pauses of 2.2 seconds, asymptomatic. DISPOSITION Mr. Hernández has pauses on telemetry up to 2.2 seconds, but remains asymptomatic. I recommend to continue his current medical program including therapy with lisinopril, aspirin, and atorvastatin. He still has significant neurologic impairment. His echocardiogram shows preserved left ventricular systolic function. He will be monitored on telemetry. I will follow him for cardiology during his hospitalization. MD ELISABETH Powell /7:08 PM /8:15 PM CANDY
[2017-08-01] MEDS: SODIUM CHLORIDE 0.9% FLUSH 10 ML FLUSH IV FLUSH SCH (21:00)
[2017-08-01 21:34] LABS: ALB/GLOB RATIO (SPE) 1.69 (1.39-2.23)
[2017-08-02] VITALS (10 sets, daily range): BP systolic 141–197; BP diastolic 83–99; PULSE 57–106; RESP 17–18; TEMP 97.7–98.3; O2SAT 94–97
--- NOTE | 2017-08-02 08:22 | HHI.PR ---
Subjective Remarks sr Objective Vital Signs Date Time Temp Pulse Resp B/P (MAP) Pulse Ox O2 Delivery O2 Flow Rate FiO2 08/02/17 05:00 97.7 64 17 175/88 (117) 94 08/02/17 00:40 98.1 68 18 164/84 (110) 94 08/01/17 23:48 63 08/01/17 20:16 98.0 66 18 156/79 (104) 99 08/01/17 19:44 67 08/01/17 16:04 98.1 66 18 130/77 (94) 94 08/01/17 12:09 98.1 65 18 167/94 (118) 95 08/01/17 11:13 68 08/01/17 08:42 98.0 60 18 144/77 (99) 94 I/O 08/01/17 08/01/17 08/01/17 08/02/17 08/02/17 08/02/17 07:00 15:00 23:00 07:00 15:00 23:00 Intake Total 740 ml 1000 ml 360 ml Output Total 300 ml 900 ml Balance 440 ml 1000 ml -540 ml Intake Oral 240 ml 360 ml IV Total 500 ml 1000 ml Output Urine Total 300 ml 900 ml Result Diagram: 07/29/17 0324 07/31/17 0559 Objective Remarks speech minimally slurred vff very ataxic rue and now fingers4/5 rle 4+ tricep 5- right no change Assessment and Plan Assessment and Plan imp mra neck neg echo nl x la 42 will need cardionet o/p few pauses here another one yest here 08/01/17 cards on case plan is 325 asa and he needs statin ellie started na low still check ct chest neg will have renal see as not improving needs bp down to 160/ for a week then 120/ better ow ready for rehab when renal sees him Sachin Denson MD Aug 02, 2017 08:22
[2017-08-02] MEDS: ASPIRIN EC 325 MG TABEC PO SCH (09:03)
[2017-08-02] MEDS: ATORVASTATIN 40 MG TAB PO SCH (09:03)
[2017-08-02] MEDS: SODIUM CHLORIDE 0.9% FLUSH 10 ML FLUSH IV FLUSH SCH ×2 (09:04→21:00)
[2017-08-02] MEDS: LISINOPRIL 10 MG TAB PO SCH (09:04)
--- NOTE | 2017-08-02 09:25 | HHI.PR ---
Subjective Remarks Follow up cardiac pauses, hyponatremia, CVA. Patient has no complaints at this time. Denies headache, vision changes, numbness/paresthesias/weakness. No chest pain, dyspnea. Objective Vitals Vital Signs Date Time Temp Pulse Resp B/P (MAP) Pulse Ox O2 Delivery O2 Flow Rate FiO2 08/02/17 08:23 98.3 61 18 176/83 (114) 95 08/02/17 05:00 97.7 64 17 175/88 (117) 94 08/02/17 00:40 98.1 68 18 164/84 (110) 94 08/01/17 23:48 63 08/01/17 20:16 98.0 66 18 156/79 (104) 99 08/01/17 19:44 67 08/01/17 16:04 98.1 66 18 130/77 (94) 94 08/01/17 12:09 98.1 65 18 167/94 (118) 95 08/01/17 11:13 68 I/O 08/01/17 08/01/17 08/01/17 08/02/17 08/02/17 08/02/17 07:00 15:00 23:00 07:00 15:00 23:00 Intake Total 740 ml 1000 ml 360 ml Output Total 300 ml 900 ml Balance 440 ml 1000 ml -540 ml Intake Oral 240 ml 360 ml IV Total 500 ml 1000 ml Output Urine Total 300 ml 900 ml Result Diagram: 07/29/17 0324 07/31/17 0559 Imaging Last Impressions Chest CT 08/01/17 0000 Signed Impressions: Service Date/Time: Tuesday, August 01, 2017 09:16 - CONCLUSION: There are no suspicious lung lesions identified.. Aneurysmal dilatation ascending aorta Alfie Kee MD FACR Neck Magnetic Resonance Angiography 07/27/17 0803 Signed Impressions: Service Date/Time: July 09:07 - CONCLUSION: 1. Eccentric plaque in the proximal right internal carotid artery with resultant approximately 20-30%% stenosis. 2. Patent left carotid artery without significant flow-limiting stenosis. 3. Patent vertebral arteries without significant flow-limiting stenosis. Israel Keenan MD Brain MRI 07/27/17 0803 Signed Impressions: Service Date/Time: July 09:07 - CONCLUSION: Infarct in the left external capsule. No significant mass or mass effect. Theodore Lanier MD Head Magnetic Resonance Angiography 07/27/17 0000 Signed Impressions: Service Date/Time: July 09:07 - CONCLUSION: Slight narrowing of the distal left middle cerebral artery, otherwise unremarkable exam. Theodore Lanier MD Head CT 07/26/17 1547 Signed Impressions: Service Date/Time: Wednesday, July 26, 2017 16:09 - CONCLUSION: 1. Chronic small vessel ischemic change. 2. No acute intracranial abnormality. Roman Payton Jr., MD Chest X-Ray 07/26/17 1547 Signed Impressions: Service Date/Time: Wednesday, July 26, 2017 16:18 - CONCLUSION: 1. No acute cardiopulmonary disease. Israel Keenan MD Carotid Artery Ultrasound 07/26/17 0000 Signed Impressions: Service Date/Time: Wednesday, July 26, 2017 21:18 - CONCLUSION: Right carotid bulb plaque formation with hemodynamic profile on both sides characteristic of less than 50%% stenosis. Roman Poole MD Objective Remarks General: Elderly male in no acute distress. Heart: Regular rate and rhythm. Lungs: Clear to auscultation bilaterally. No wheezes, rales, or rhonchi. Breathing is nonlabored. Abdomen: Soft, nontender, nondistended. Extremities: No lower extremity edema. Psych: Alert and oriented. Answers questions appropriately. Procedures none Urinary Catheter: No Vascular Central Line Catheter: No A/P Problem List: (1) HTN (hypertension) ICD Code: I10 - Essential (primary) hypertension Status: Chronic (2) HLD (hyperlipidemia) ICD Code: E78.5 - Hyperlipidemia, unspecified Status: Chronic (3) Acute ischemic left MCA stroke ICD Code: I63.512 - Cerebral infarction due to unspecified occlusion or stenosis of left middle cerebral artery Status: Acute (4) Hyponatremia ICD Code: E87.1 - Hypo-osmolality and hyponatremia Assessment and Plan 1. CVA: Patient has residual right-sided weakness and right facial droop. He also has dysarthria. Appreciate neurology recommendations. Continue aspirin. Continue PT/OT/ST. Clinically improving. 2. Hyponatremia: Likely chronic secondary to alcoholism. Also likely a component of hypovolemia/dehydration. Continue IV fluids. Monitor labs. CT chest is negative for mass. Labs are pending today. Nephrology consult requested. 3. Hypertension: Atenolol restarted yesterday. Discontinued due to cardiac pause. Increase lisinopril. 4. Hyperlipidemia: Statin. 5. Hypothyroidism: TSH is normal. Free T4 is slightly high. 6. Alcohol abuse history: CIWA protocol discontinued. Patient has been counseled. 7. Insomnia: Ativan as needed at bedtime. 8. Thoracic aortic aneurysm: Recommend repeat CT in 6 months. 9. Cardiac pause: Appreciate cardiology recommendations. Continue telemetry monitoring. 10. DVT prophylaxis: ABELINO Bains. Discharge Planning Plan for discharge to SNF soon, pending labs and cardiology clearance. Problem Qualifiers (1) HTN (hypertension): Qualified Codes: I10 - Essential (primary) hypertension (2) HLD (hyperlipidemia): Qualified Codes: E78.5 - Hyperlipidemia, unspecified Dhruv Carl MD Aug 02, 2017 09:25
[2017-08-02 10:40] LABS: BICARBONATE 24.1 MEQ/L (21.0-32.0); CREATININE 0.8 MG/DL (0.60-1.30)
[2017-08-02] MEDS: SODIUM CHLOR 0.9% 1000 ML INJ 1,000 ML IV SCH (11:39)
--- NOTE | 2017-08-02 14:47 | PD.CARD.PN ---
Subjective Subjective Remarks No CP or SOB, speech impaired Objective Medications Current Medications Medications (Trade) Dose Ordered Sig/Luther Route Start Time Stop Time Status Last Admin (NS Flush) 2 ml BID IV FLUSH 07/26/17 21:00 08/02/17 09:04 (NS Flush) 2 ml UNSCH PRN IV FLUSH 07/26/17 18:30 (D50w (Vial) Inj) 50 ml UNSCH PRN IV PUSH 07/26/17 18:30 (Glucagon Inj) 1 mg UNSCH PRN OTHER 07/26/17 18:30 (Ecotrin Ec) 325 mg DAILY PO 07/27/17 09:00 08/02/17 09:03 (Lipitor) 40 mg DAILY PO 07/29/17 09:00 08/02/17 09:03 (Vasotec Inj) 2.5 mg Q6H PRN IV PUSH 07/29/17 09:15 07/30/17 01:00 (Ativan) 0.5 mg HS PRN PO 07/30/17 21:00 07/31/17 21:03 (Pill Splitter) 1 ea UNSCH PRN OTHER 08/01/17 06:00 Sodium Chloride 1,000 ml @ 75 mls/hr [id number] IV 08/01/17 08:00 08/02/17 11:39 (Prinivil) 10 mg DAILY PO 08/01/17 09:30 08/02/17 09:04 Vital Signs / I&O Vital Signs Date Time Temp Pulse Resp B/P (MAP) Pulse Ox O2 Delivery O2 Flow Rate FiO2 08/02/17 12:32 98.2 77 18 141/95 (110) 95 08/02/17 08:23 98.3 61 18 176/83 (114) 95 08/02/17 05:00 97.7 64 17 175/88 (117) 94 08/02/17 00:40 98.1 68 18 164/84 (110) 94 08/01/17 23:48 63 08/01/17 20:16 98.0 66 18 156/79 (104) 99 08/01/17 19:44 67 08/01/17 16:04 98.1 66 18 130/77 (94) 94 I/O 08/01/17 08/01/17 08/01/17 08/02/17 08/02/17 1227/17 07:00 15:00 23:00 07:00 15:00 23:00 Intake Total 740 ml 1000 ml 360 ml Output Total 300 ml 900 ml Balance 440 ml 1000 ml -540 ml Intake Oral 240 ml 360 ml IV Total 500 ml 1000 ml Output Urine Total 300 ml 900 ml Physical Exam GENERAL: In NAD, speech impaired SKIN: Warm and dry. HEAD: Normocephalic. EYES: No scleral icterus. No injection or drainage. NECK: Supple, trachea midline. No JVD or lymphadenopathy. CARDIOVASCULAR: Regular rate and rhythm without murmurs, gallops, or rubs. RESPIRATORY: Breath sounds equal bilaterally. No accessory muscle use. GASTROINTESTINAL: Abdomen soft, non-tender, nondistended. MUSCULOSKELETAL: No cyanosis, or edema. Laboratory Laboratory Tests Test 08/02/17 09:00 Blood Urea Nitrogen 12 MG/DL Creatinine 0.80 MG/DL Random Glucose 88 MG/DL Calcium Level 8.0 MG/DL Sodium Level 126 MEQ/L Potassium Level 3.6 MEQ/L Chloride Level 92 MEQ/L Carbon Dioxide Level 24.1 MEQ/L Anion Gap 10 MEQ/L Estimat Glomerular Filtration Rate 96 ML/MIN Assessment and Plan Problem List: (1) CVA (cerebral vascular accident) ICD Codes: I63.9 - Cerebral infarction, unspecified Status: Acute (2) HTN (hypertension) ICD Codes: I10 - Essential (primary) hypertension Status: Chronic (3) HLD (hyperlipidemia) ICD Codes: E78.5 - Hyperlipidemia, unspecified Status: Chronic (4) Sinus pause ICD Codes: I45.5 - Other specified heart block Assessment and Plan Tele with sinus pauses, asymptomatic. Still with significant neurologic deficits. No AF. BP control. Aggressive risk factor modification. Increase activity. PT. Problem Qualifiers (1) HTN (hypertension): Qualified Codes: I10 - Essential (primary) hypertension (2) HLD (hyperlipidemia): Qualified Codes: E78.5 - Hyperlipidemia, unspecified Chelsey Washington MD Aug 02, 2017 14:47
--- NOTE | 2017-08-02 17:03 | MB ---
cc: NOEL JONES MD DATE OF CONSULTATION: 08/02/2017 REASON FOR CONSULTATION: Hyponatremia for evaluation. HISTORY OF PRESENT ILLNESS This is a 71-year-old male with past medical history of hypertension, hypothyroidism was brought to the hospital with right-sided weakness. I was called to see the patient for a low sodium level. The patient has sodium level of 129 on presentation and he went down to 123 five days ago and for the last few days it has been stable around 125-126. Patient has been eating good. Denies any nausea or vomiting. There is no history of diarrhea. The patient was diagnosed here with a stroke and has been following by the neurology and cardiology and he has right-sided weakness. He admits that he has been drinking a lot of fluid including one pitcher of water every day along with the soda and tea or coffee. The patient denies any shortness of breath. No chest pain. No palpitation. His blood pressure was on the higher side and he was started on atenolol and then it was stopped and now he is on lisinopril. PAST MEDICAL HISTORY: Hypertension Hypothyroidism. PAST SURGICAL HISTORY None. REVIEW OF SYSTEMS The patient has otherwise weakness, feeling tired. No history of nausea, vomiting. No shortness of breath or chest pain. No palpitation. Appetite is normal. No history of diarrhea. FAMILY HISTORY AND SOCIAL HISTORY A past history of smoking 50 years ago and drinks approximately one bottle of wine three times per week. FAMILY HISTORY: Family history is negative for diabetes or ischemic heart disease. ALLERGIES NO KNOWN DRUG ALLERGIES. MEDICATIONS He is currently on 1. Normal saline at 75 hours which was started yesterday. 2. He is on aspirin 325 mg. 3. Lipitor 40 mg once a day. 4. Lisinopril 10 mg daily 5. Ativan as needed. PHYSICAL EXAMINATION: IN GENERAL: On examination the patient is awake, alert. He is not in acute distress. VITAL SIGNS: Blood pressure 141/95, temperature is 98.2, oxygen saturation 95%. HEAD, EYES, EARS, NOSE, AND THROAT: Pupils are mid constricted. Nonicteric sclera, conjunctiva pale. NECK: Supple. JVD is not elevated. LUNGS: The patient has bilateral good air entry with occasional wheezing. HEART: S1, S2, regular rhythm. ABDOMEN: Her abdomen is soft lax. There is no tenderness. Bowel sounds positive. EXTREMITIES: There is no pedal edema. INVESTIGATIONS: WBC count is 8.9, hemoglobin 13.3, platelet count of 246, neutrophils 64.9%, sodium was 126. Potassium 3.6, chloride 92, bicarb 24.1, BUN 12, creatinine 0.8. Calcium 8.0, phosphorus 2.1. Albumin was 3.2. Magnesium 1.6, INR is 1.2. Toxicology screen showing alcohol less than 3. Urinalysis showing specific gravity of 1.009 and there was no proteinuria. ANJEL was negative. IMAGING STUDIES: The patient has CT scan of the brain done on admission and shows chronic small vessel disease. No acute intracranial abnormality. He had MRA of the brain done which shows slight narrowing of the distal left middle cerebral artery. MRI of the brain was done which shows infarction the left external capsule, cysts. CT was done which shows no suspicious lung lesion identified. There is dilatation of the ascending aorta. ASSESSMENT/PLAN 1. Hyponatremia. 2. Recent stroke. 3. Hypertension 4. Hypothyroidism. The patient has persistent low sodium, it could be related to his stroke and high ADH level. His urine specific gravity was very low. I will check his urine sodium and osmolality and currently he is getting the IV fluids, I discussed with the patient to restrict the oral fluid intake and I will put him on some oral fluid restriction. Thank you for the consultation. I will follow the patient while he is in the hospital MD ELLA Boateng/ez /3:57 PM /4:34 PM
[2017-08-02 18:52] LABS: SODIUM,RANDOM URINE 126 MEQ/L
[2017-08-02 19:41] LABS: OSMOLALITY,URINE 620 MOSM/KG (300-1300)
[2017-08-02] MEDS: ENALAPRILAT 2.5 MG/2 ML VIAL IV PUSH PRN (22:08)
[2017-08-02] MEDS ORDERED: NIFEdipine 30 MG SUSTAINED RELEASE TAB PO ONE (23:45)
[2017-08-03] VITALS (11 sets, daily range): BP systolic 138–208; BP diastolic 76–100; PULSE 61–97; RESP 17–19; TEMP 97.5–98.8; O2SAT 95–98
[2017-08-03] MEDS: ENALAPRILAT 2.5 MG/2 ML VIAL IV PUSH PRN (05:19)
[2017-08-03] MEDS: ATORVASTATIN 40 MG TAB PO SCH (08:53)
[2017-08-03] MEDS: SODIUM CHLORIDE 0.9% FLUSH 10 ML FLUSH IV FLUSH SCH ×2 (08:54→22:15)
[2017-08-03] MEDS: ASPIRIN EC 325 MG TABEC PO SCH (08:54)
[2017-08-03] MEDS: LISINOPRIL 10 MG TAB PO SCH (08:55)
[2017-08-03] MEDS: hydrALAZINE HCL 10 MG TAB PO SCH ×3 (09:19→22:11)
[2017-08-03 11:57] LABS: BICARBONATE 24.6 MEQ/L (21.0-32.0); CALCIUM 8.8 MG/DL (8.5-10.1); CREATININE 0.74 MG/DL (0.60-1.30)
--- NOTE | 2017-08-03 13:40 | HHI.PR ---
Subjective Remarks Follow up hyponatremia, CVA. Patient states that he is having trouble sleeping. Still with weakness on the right, not much change. No chest pain, dyspnea. Objective Vitals Vital Signs Date Time Temp Pulse Resp B/P (MAP) Pulse Ox O2 Delivery O2 Flow Rate FiO2 08/03/17 12:00 97.9 81 18 151/76 (101) 96 08/03/17 09:17 65 08/03/17 08:00 97.7 87 18 171/100 (123) 98 08/03/17 05:00 97.5 67 18 192/93 (126) 95 08/03/17 03:44 61 08/03/17 03:43 75 08/03/17 01:10 62 180/97 (124) 08/03/17 00:00 98.1 65 18 208/98 (134) 95 08/02/17 22:04 69 197/92 (127) 08/02/17 20:30 98.2 57 18 180/99 (126) 97 08/02/17 16:56 71 08/02/17 16:34 98.2 67 18 172/98 (122) 95 I/O 08/02/17 08/02/17 08/02/17 08/03/17 08/03/17 08/03/17 07:00 15:00 23:00 07:00 15:00 23:00 Intake Total 360 ml 1240 ml 120 ml 120 ml Output Total 900 ml 500 ml 350 ml 850 ml Balance -540 ml 740 ml -230 ml -730 ml Intake Oral 360 ml 240 ml 120 ml 120 ml IV Total 1000 ml Output Urine Total 900 ml 500 ml 350 ml 850 ml Result Diagram: 08/03/17 1045 Imaging Last Impressions Chest CT 08/01/17 0000 Signed Impressions: Service Date/Time: Tuesday, August 01, 2017 09:16 - CONCLUSION: There are no suspicious lung lesions identified.. Aneurysmal dilatation ascending aorta Alfie Kee MD FACR Neck Magnetic Resonance Angiography 07/27/17 0803 Signed Impressions: Service Date/Time: July 09:07 - CONCLUSION: 1. Eccentric plaque in the proximal right internal carotid artery with resultant approximately 20-30%% stenosis. 2. Patent left carotid artery without significant flow-limiting stenosis. 3. Patent vertebral arteries without significant flow-limiting stenosis. Israel Keenan MD Brain MRI 07/27/17 0803 Signed Impressions: Service Date/Time: July 09:07 - CONCLUSION: Infarct in the left external capsule. No significant mass or mass effect. Theodore Lanier MD Head Magnetic Resonance Angiography 07/27/17 0000 Signed Impressions: Service Date/Time: July 09:07 - CONCLUSION: Slight narrowing of the distal left middle cerebral artery, otherwise unremarkable exam. Theodore Lanier MD Head CT 07/26/17 1547 Signed Impressions: Service Date/Time: Wednesday, July 26, 2017 16:09 - CONCLUSION: 1. Chronic small vessel ischemic change. 2. No acute intracranial abnormality. Roman Payton Jr., MD Chest X-Ray 07/26/17 1547 Signed Impressions: Service Date/Time: Wednesday, July 26, 2017 16:18 - CONCLUSION: 1. No acute cardiopulmonary disease. Israel Keenan MD Carotid Artery Ultrasound 07/26/17 0000 Signed Impressions: Service Date/Time: Wednesday, July 26, 2017 21:18 - CONCLUSION: Right carotid bulb plaque formation with hemodynamic profile on both sides characteristic of less than 50%% stenosis. Roman Poole MD Objective Remarks General: Elderly male in no acute distress. Sitting up in a chair. Heart: Regular rate and rhythm. Lungs: Clear to auscultation bilaterally. No wheezes, rales, or rhonchi. Breathing is nonlabored. Abdomen: Soft, nontender, nondistended. Extremities: No lower extremity edema. Right upper and lower extremity weakness. Psych: Alert and oriented. Answers questions appropriately. Procedures none Urinary Catheter: No Vascular Central Line Catheter: No A/P Problem List: (1) HTN (hypertension) ICD Code: I10 - Essential (primary) hypertension Status: Chronic (2) HLD (hyperlipidemia) ICD Code: E78.5 - Hyperlipidemia, unspecified Status: Chronic (3) Acute ischemic left MCA stroke ICD Code: I63.512 - Cerebral infarction due to unspecified occlusion or stenosis of left middle cerebral artery Status: Acute (4) Hyponatremia ICD Code: E87.1 - Hypo-osmolality and hyponatremia Assessment and Plan 1. CVA: Patient has residual right-sided weakness and right facial droop. He also has dysarthria. Appreciate neurology recommendations. Continue aspirin. Continue PT/OT/ST. Clinically improving. 2. Hyponatremia: Likely chronic secondary to alcoholism. Also likely a component of hypovolemia/dehydration. Continue IV fluids. Monitor labs. CT chest is negative for mass. Appreciate nephrology recommendations. 3. Hypertension: Atenolol restarted yesterday. Discontinued due to cardiac pause. Continue lisinopril. Add hydralazine. 4. Hyperlipidemia: Statin. 5. Hypothyroidism: TSH is normal. Free T4 is slightly high. 6. Alcohol abuse history: CIWA protocol discontinued. Patient has been counseled. 7. Insomnia: Ativan as needed at bedtime. 8. Thoracic aortic aneurysm: Recommend repeat CT in 6 months. 9. Cardiac pause: Appreciate cardiology recommendations. Continue telemetry monitoring. 10. DVT prophylaxis: ABELINO Bains. Discharge Planning Plan for discharge to SNF soon, pending nephrology and cardiology clearance. Problem Qualifiers (1) HTN (hypertension): Qualified Codes: I10 - Essential (primary) hypertension (2) HLD (hyperlipidemia): Qualified Codes: E78.5 - Hyperlipidemia, unspecified Dhruv Carl MD Aug 03, 2017 13:40
--- NOTE | 2017-08-03 15:03 | PD.CARD.PN ---
Subjective Subjective Remarks No CP or SOB, speech still impaired, walked earlier, feels better Objective Medications Current Medications Medications (Trade) Dose Ordered Sig/Luther Route Start Time Stop Time Status Last Admin (NS Flush) 2 ml BID IV FLUSH 07/26/17 21:00 08/03/17 08:54 (NS Flush) 2 ml UNSCH PRN IV FLUSH 07/26/17 18:30 (D50w (Vial) Inj) 50 ml UNSCH PRN IV PUSH 07/26/17 18:30 (Glucagon Inj) 1 mg UNSCH PRN OTHER 07/26/17 18:30 (Ecotrin Ec) 325 mg DAILY PO 07/27/17 09:00 08/03/17 08:54 (Lipitor) 40 mg DAILY PO 07/29/17 09:00 08/03/17 08:53 (Vasotec Inj) 2.5 mg Q6H PRN IV PUSH 07/29/17 09:15 08/03/17 05:19 (Ativan) 0.5 mg HS PRN PO 07/30/17 21:00 07/31/17 21:03 (Pill Splitter) 1 ea UNSCH PRN OTHER 08/01/17 06:00 (Prinivil) 10 mg DAILY PO 08/01/17 09:30 08/03/17 08:55 (Apresoline) 10 mg Q8HR PO 08/03/17 07:45 08/03/17 09:19 Vital Signs / I&O Vital Signs Date Time Temp Pulse Resp B/P (MAP) Pulse Ox O2 Delivery O2 Flow Rate FiO2 08/03/17 12:00 97.9 81 18 151/76 (101) 96 08/03/17 09:17 65 08/03/17 08:00 97.7 87 18 171/100 (123) 98 08/03/17 05:00 97.5 67 18 192/93 (126) 95 08/03/17 03:44 61 08/03/17 03:43 75 08/03/17 01:10 62 180/97 (124) 08/03/17 00:00 98.1 65 18 208/98 (134) 95 08/02/17 22:04 69 197/92 (127) 08/02/17 20:30 98.2 57 18 180/99 (126) 97 08/02/17 16:56 71 08/02/17 16:34 98.2 67 18 172/98 (122) 95 I/O 08/02/17 08/02/17 08/02/17 08/03/17 08/03/17 08/03/17 07:00 15:00 23:00 07:00 15:00 23:00 Intake Total 360 ml 1240 ml 120 ml 120 ml Output Total 900 ml 500 ml 350 ml 850 ml Balance -540 ml 740 ml -230 ml -730 ml Intake Oral 360 ml 240 ml 120 ml 120 ml IV Total 1000 ml Output Urine Total 900 ml 500 ml 350 ml 850 ml Physical Exam GENERAL: In NAD, speech impaired SKIN: Warm and dry. HEAD: Normocephalic. EYES: No scleral icterus. No injection or drainage. NECK: Supple, trachea midline. No JVD or lymphadenopathy. CARDIOVASCULAR: Regular rate and rhythm without murmurs, gallops, or rubs. RESPIRATORY: Breath sounds equal bilaterally. No accessory muscle use. GASTROINTESTINAL: Abdomen soft, non-tender, nondistended. MUSCULOSKELETAL: No cyanosis, or edema. Laboratory Laboratory Tests Test 08/02/17 17:10 08/03/17 10:45 Urine Osmolality 620 MOSM/KG Urine Random Sodium 126 MEQ/L Blood Urea Nitrogen 9 MG/DL Creatinine 0.74 MG/DL Random Glucose 125 MG/DL Calcium Level 8.8 MG/DL Sodium Level 126 MEQ/L Potassium Level 3.7 MEQ/L Chloride Level 91 MEQ/L Carbon Dioxide Level 24.6 MEQ/L Anion Gap 10 MEQ/L Estimat Glomerular Filtration Rate 105 ML/MIN Assessment and Plan Problem List: (1) CVA (cerebral vascular accident) ICD Codes: I63.9 - Cerebral infarction, unspecified Status: Acute (2) HTN (hypertension) ICD Codes: I10 - Essential (primary) hypertension Status: Chronic (3) HLD (hyperlipidemia) ICD Codes: E78.5 - Hyperlipidemia, unspecified Status: Chronic (4) Sinus pause ICD Codes: I45.5 - Other specified heart block Assessment and Plan No new cardiac issues. Tele with sinus pauses, asymptomatic, no AF. Continue BP control. Continue aggressive risk factor modification. Increase activity. PT. Problem Qualifiers (1) HTN (hypertension): Qualified Codes: I10 - Essential (primary) hypertension (2) HLD (hyperlipidemia): Qualified Codes: E78.5 - Hyperlipidemia, unspecified Chelsey Washington MD Aug 03, 2017 15:03
--- NOTE | 2017-08-03 17:09 | HHI.NPPN ---
Subjective History of Present Illness 71-year-old male with past medical history of hypertension, hypothyroidism was brought to the hospital with right-sided weakness. I was called to see the patient for a low sodium level. Additional Remarks Patient is alert, seen in AM, not eating well, not in distress. Review of Systems General Constitutional: Fatigue Cardiovascular Cardiac: GAXIOLA Objective Data Data 08/03/17 08/04/17 19:00 07:00 Intake Total 720 ml Output Total 350 ml Balance 370 ml Intake Oral 720 ml Output Urine Total 350 ml # Bowel Movements 0 Vital Signs Date Time Temp Pulse Resp B/P (MAP) Pulse Ox O2 Delivery O2 Flow Rate FiO2 08/03/17 16:00 97.8 92 19 138/76 (96) 96 08/03/17 12:00 97.9 81 18 151/76 (101) 96 08/03/17 09:17 65 08/03/17 08:00 97.7 87 18 171/100 (123) 98 08/03/17 05:00 97.5 67 18 192/93 (126) 95 08/03/17 03:44 61 08/03/17 03:43 75 08/03/17 01:10 62 180/97 (124) 08/03/17 00:00 98.1 65 18 208/98 (134) 95 08/02/17 22:04 69 197/92 (127) 08/02/17 20:30 98.2 57 18 180/99 (126) 97 -: 08/03/17 1045 Physical Exam General Appearance: No Acute Distress, Comfortable Eyes Eye Exam: Pupils Equal Throat Throat Exam: Oral Mucosa [place] & Moist Neck Neck Exam: Neck Supple Pulmonary Resp Exam: Breath Sounds Equal, No Distress, Rhonchi, Decreased Bases Cardiology CV Exam: Regular, Normal Sinus Rhythm Gastrointestinal/Abdomen GI Exam: Soft, Non-Tender, Bowel Sounds Present Extremeties Extremities Exam: No Edema Neurologic Neuro Exam: Alert, Awake, Oriented Psychiatric Psych Exam: Appropriate Responses Assessment/Plan Assessment Summary: Hypertension Electrolyte Assessment: Hyponatremia Problem List: (1) CVA (cerebral vascular accident) ICD Codes: I63.9 - Cerebral infarction, unspecified Status: Acute (2) HTN (hypertension) ICD Codes: I10 - Essential (primary) hypertension Status: Chronic (3) Acute ischemic left MCA stroke ICD Codes: I63.512 - Cerebral infarction due to unspecified occlusion or stenosis of left middle cerebral artery Status: Acute (4) HLD (hyperlipidemia) ICD Codes: E78.5 - Hyperlipidemia, unspecified Status: Chronic (5) Hyponatremia ICD Codes: E87.1 - Hypo-osmolality and hyponatremia Plan Patient with Hypertension and recent stroke, has Hyponatremia. Na. remain at 126 now. Not eating well. On fluid restriction. Urine osmolality is elevated. Most likely has excessive ADH due to CVA. Continue fluid restriction. Give one dose of Samsca. Problem Qualifiers (1) HTN (hypertension): Qualified Codes: I10 - Essential (primary) hypertension (2) HLD (hyperlipidemia): Qualified Codes: E78.5 - Hyperlipidemia, unspecified Breanna Matias MD Aug 03, 2017 17:09
[2017-08-03] MEDS ORDERED: TOLVAPTAN 15 MG TAB PO ONE (18:00)
[2017-08-03] MEDS ORDERED: TOLVAPTAN 30 MG TAB PO ONE (18:00)
[2017-08-03] MEDS: LORazepam 0.5 MG TAB PO PRN (22:11)
[2017-08-04] VITALS (7 sets, daily range): BP systolic 145–165; BP diastolic 87–114; PULSE 71–95; RESP 16–17; TEMP 97.7–98.8; O2SAT 96–98
[2017-08-04] MEDS: hydrALAZINE HCL 10 MG TAB PO SCH ×2 (06:15→13:07)
[2017-08-04 07:20] LABS: BICARBONATE 23.1 MEQ/L (21.0-32.0); CALCIUM 8.9 MG/DL (8.5-10.1); CREATININE 0.82 MG/DL (0.60-1.30)
--- NOTE | 2017-08-04 07:48 | HHI.NPPN ---
Subjective History of Present Illness 71-year-old male with past medical history of hypertension, hypothyroidism was brought to the hospital with right-sided weakness. I was called to see the patient for a low sodium level. Additional Remarks Patient is alert, no SOB, not in distress. Review of Systems General Constitutional: Fatigue Cardiovascular Cardiac: GAXIOLA Objective Data Data Vital Signs Date Time Temp Pulse Resp B/P (MAP) Pulse Ox O2 Delivery O2 Flow Rate FiO2 08/04/17 05:11 81 08/04/17 04:07 98.0 71 17 154/90 (111) 96 08/04/17 00:52 83 08/04/17 00:30 98.8 91 17 165/114 (131) 96 08/03/17 20:05 98.8 82 17 152/88 (109) 95 08/03/17 16:10 97 08/03/17 16:00 97.8 92 19 138/76 (96) 96 08/03/17 12:00 97.9 81 18 151/76 (101) 96 08/03/17 09:17 65 08/03/17 08:00 97.7 87 18 171/100 (123) 98 -: 08/04/17 0531 Physical Exam General Appearance: No Acute Distress, Comfortable Eyes Eye Exam: Pupils Equal Throat Throat Exam: Oral Mucosa [place] & Moist Neck Neck Exam: Neck Supple Pulmonary Resp Exam: Breath Sounds Equal, No Distress, Rhonchi, Decreased Bases Cardiology CV Exam: Regular, Normal Sinus Rhythm Gastrointestinal/Abdomen GI Exam: Soft, Non-Tender, Bowel Sounds Present Extremeties Extremities Exam: No Edema Neurologic Neuro Exam: Alert, Awake, Oriented Psychiatric Psych Exam: Appropriate Responses Assessment/Plan Assessment Summary: Hypertension Electrolyte Assessment: Hyponatremia Problem List: (1) CVA (cerebral vascular accident) ICD Codes: I63.9 - Cerebral infarction, unspecified Status: Acute (2) HTN (hypertension) ICD Codes: I10 - Essential (primary) hypertension Status: Chronic (3) Acute ischemic left MCA stroke ICD Codes: I63.512 - Cerebral infarction due to unspecified occlusion or stenosis of left middle cerebral artery Status: Acute (4) HLD (hyperlipidemia) ICD Codes: E78.5 - Hyperlipidemia, unspecified Status: Chronic (5) Hyponatremia ICD Codes: E87.1 - Hypo-osmolality and hyponatremia Plan Patient with Hypertension and recent stroke, has Hyponatremia. Na. now increase to 129. Not eating well. On fluid restriction. Urine osmolality is elevated. Most likely has excessive ADH due to CVA. Continue fluid restriction. Give one dose of Samsca on 08/03. Can be D/C to Rehab from Nephrology. Will need follow up BMP. Problem Qualifiers (1) HTN (hypertension): Qualified Codes: I10 - Essential (primary) hypertension (2) HLD (hyperlipidemia): Qualified Codes: E78.5 - Hyperlipidemia, unspecified Breanna Matias MD Aug 04, 2017 07:48
--- NOTE | 2017-08-04 07:51 | HHI.PR ---
Subjective Remarks sr holter neg no new co Objective Vital Signs Date Time Temp Pulse Resp B/P (MAP) Pulse Ox O2 Delivery O2 Flow Rate FiO2 08/04/17 05:11 81 08/04/17 04:07 98.0 71 17 154/90 (111) 96 08/04/17 00:52 83 08/04/17 00:30 98.8 91 17 165/114 (131) 96 08/03/17 20:05 98.8 82 17 152/88 (109) 95 08/03/17 16:10 97 08/03/17 16:00 97.8 92 19 138/76 (96) 96 08/03/17 12:00 97.9 81 18 151/76 (101) 96 08/03/17 09:17 65 08/03/17 08:00 97.7 87 18 171/100 (123) 98 I/O 08/03/17 08/03/17 08/03/17 08/04/17 08/04/17 08/04/17 07:00 15:00 23:00 07:00 15:00 23:00 Intake Total 120 ml 960 ml 240 ml Output Total 850 ml 1050 ml 500 ml Balance -730 ml -90 ml -260 ml Intake Oral 120 ml 960 ml 240 ml Output Urine Total 850 ml 1050 ml 500 ml # Bowel Movements 1 Result Diagram: 08/04/17 0531 Objective Remarks speech dysarthric slurred vff very ataxic rue and now fingers4/5 makes good fist rle 4+ tricep 5- right no change Assessment and Plan Assessment and Plan /imp mra neck neg echo nl x la 42 will need cardionet o/p few pauses here another one yest here 08/01/17 cards on case plan is 325 asa and he needs statin ellie started na low still check ct chest neg will have renal see as not improving needs bp down to 160/ for a week then 120/ better ow ready for rehab when renal sees him 08/04/17 stable neuro cards and renal on case na 129 ok dc by me to rehad needs cardionet o/p dr gamino fu office / Sachin Denson MD Aug 04, 2017 07:51
[2017-08-04] MEDS: LISINOPRIL 10 MG TAB PO SCH (09:18)
[2017-08-04] MEDS: SODIUM CHLORIDE 0.9% FLUSH 10 ML FLUSH IV FLUSH SCH (09:18)
[2017-08-04] MEDS: ASPIRIN EC 325 MG TABEC PO SCH (09:19)
[2017-08-04] MEDS: ATORVASTATIN 40 MG TAB PO SCH (09:19)
--- NOTE | 2017-08-04 09:31 | HHI.PR ---
Subjective Remarks Follow up CVA, hyponatremia. Patient states that he feels better today. Denies chest pain, dyspnea. Feels that his speech is better today. Objective Vitals Vital Signs Date Time Temp Pulse Resp B/P (MAP) Pulse Ox O2 Delivery O2 Flow Rate FiO2 08/04/17 08:00 97.7 80 16 150/87 (108) 98 08/04/17 05:11 81 08/04/17 04:07 98.0 71 17 154/90 (111) 96 08/04/17 00:52 83 08/04/17 00:30 98.8 91 17 165/114 (131) 96 08/03/17 20:05 98.8 82 17 152/88 (109) 95 08/03/17 16:10 97 08/03/17 16:00 97.8 92 19 138/76 (96) 96 08/03/17 12:00 97.9 81 18 151/76 (101) 96 I/O 08/03/17 08/03/17 08/03/17 08/04/17 08/04/17 08/04/17 07:00 15:00 23:00 07:00 15:00 23:00 Intake Total 120 ml 960 ml 240 ml Output Total 850 ml 1050 ml 500 ml Balance -730 ml -90 ml -260 ml Intake Oral 120 ml 960 ml 240 ml Output Urine Total 850 ml 1050 ml 500 ml # Bowel Movements 1 Result Diagram: 08/04/17 0531 Imaging Last Impressions Chest CT 08/01/17 0000 Signed Impressions: Service Date/Time: Tuesday, August 01, 2017 09:16 - CONCLUSION: There are no suspicious lung lesions identified.. Aneurysmal dilatation ascending aorta Alfie Kee MD FACR Neck Magnetic Resonance Angiography 07/27/17 08 Signed Impressions: Service Date/Time: July 09:07 - CONCLUSION: 1. Eccentric plaque in the proximal right internal carotid artery with resultant approximately 20-30%% stenosis. 2. Patent left carotid artery without significant flow-limiting stenosis. 3. Patent vertebral arteries without significant flow-limiting stenosis. Israel Keenan MD Brain MRI 07/27/17 08 Signed Impressions: Service Date/Time: July 09:07 - CONCLUSION: Infarct in the left external capsule. No significant mass or mass effect. Theodore Lanier MD Head Magnetic Resonance Angiography 07/27/17 0000 Signed Impressions: Service Date/Time: July 09:07 - CONCLUSION: Slight narrowing of the distal left middle cerebral artery, otherwise unremarkable exam. Theodore Lanier MD Head CT 07/26/17 1547 Signed Impressions: Service Date/Time: Wednesday, July 26, 2017 16:09 - CONCLUSION: 1. Chronic small vessel ischemic change. 2. No acute intracranial abnormality. Roman Payton Jr., MD Chest X-Ray 07/26/17 1547 Signed Impressions: Service Date/Time: Wednesday, July 26, 2017 16:18 - CONCLUSION: 1. No acute cardiopulmonary disease. Israel Keenan MD Carotid Artery Ultrasound 07/26/17 0000 Signed Impressions: Service Date/Time: Wednesday, July 26, 2017 21:18 - CONCLUSION: Right carotid bulb plaque formation with hemodynamic profile on both sides characteristic of less than 50%% stenosis. Roman Poole MD Objective Remarks General: Elderly male in no acute distress. Heart: Regular rate and rhythm. Lungs: Clear to auscultation bilaterally. No wheezes, rales, or rhonchi. Breathing is nonlabored. Abdomen: Soft, nontender, nondistended. Extremities: No lower extremity edema. Right upper and lower extremity weakness. Psych: Alert and oriented. Answers questions appropriately. Procedures none Urinary Catheter: No Vascular Central Line Catheter: No A/P Problem List: (1) HTN (hypertension) ICD Code: I10 - Essential (primary) hypertension Status: Chronic (2) HLD (hyperlipidemia) ICD Code: E78.5 - Hyperlipidemia, unspecified Status: Chronic (3) Acute ischemic left MCA stroke ICD Code: I63.512 - Cerebral infarction due to unspecified occlusion or stenosis of left middle cerebral artery Status: Acute (4) Hyponatremia ICD Code: E87.1 - Hypo-osmolality and hyponatremia Assessment and Plan 1. CVA: Patient has residual right-sided weakness and right facial droop. He also has dysarthria. Appreciate neurology recommendations. Continue aspirin. Continue PT/OT/ST. Clinically improving. 2. Hyponatremia: Likely chronic secondary to alcoholism. Also likely a component of hypovolemia/dehydration. Continue IV fluids. Monitor labs. CT chest is negative for mass. Appreciate nephrology recommendations. Received Samsca. Sodium slightly better. 3. Hypertension: Atenolol restarted yesterday. Discontinued due to cardiac pause. Continue lisinopril, hydralazine. 4. Hyperlipidemia: Statin. 5. Hypothyroidism: TSH is normal. Free T4 is slightly high. 6. Alcohol abuse history: CIWA protocol discontinued. Patient has been counseled. 7. Insomnia: Ativan as needed at bedtime. 8. Thoracic aortic aneurysm: Recommend repeat CT in 6 months. 9. Cardiac pause: Appreciate cardiology recommendations. Continue telemetry monitoring. 10. DVT prophylaxis: ABELINO Bains. Discharge Planning Cleared for discharge by neurology. Plan for discharge to SNF when cleared by nephrology, cardiology. Problem Qualifiers (1) HTN (hypertension): Qualified Codes: I10 - Essential (primary) hypertension (2) HLD (hyperlipidemia): Qualified Codes: E78.5 - Hyperlipidemia, unspecified Dhruv Carl MD Aug 04, 2017 09:31
[2017-08-04] MEDS ORDERED: HYDR-3798 PO (13:05)
[2017-08-04] MEDS ORDERED: LISI10TA3 PO (13:05)
--- NOTE | 2017-08-04 13:24 | HHI.DS ---
Discharge Summary Admission Date Jul 26, 2017 at 21:14 Discharge Date: Aug 04, 2017 Admitting Diagnosis CVA (1) HTN (hypertension) ICD Code: I10 - Essential (primary) hypertension Status: Chronic (2) HLD (hyperlipidemia) ICD Code: E78.5 - Hyperlipidemia, unspecified Status: Chronic (3) Acute ischemic left MCA stroke ICD Code: I63.512 - Cerebral infarction due to unspecified occlusion or stenosis of left middle cerebral artery Status: Acute (4) Hyponatremia ICD Code: E87.1 - Hypo-osmolality and hyponatremia Procedures none Brief History - From Admission 71-year-old male with a past medical history significant for hypertension and hypothyroidism was brought to the emergency department for evaluation of right- sided deficits. The patient reports that yesterday he fell asleep and when he awoke his right arm was numb and weak. He also states that yesterday he fell while he was walking because he had no balance. The patient has slurred speech which was noticed by his niece and he was encouraged to go to the emergency department for further evaluation. He remains asymptomatic with slurred speech , right-sided facial droop and right upper and lower extremity weakness. Head CT was negative for acute intercranial abnormality but did show small vessel ischemic change. CBC/BMP: 08/04/17 0531 Significant Findings Laboratory Tests Test 08/02/17 09:00 08/02/17 17:10 08/03/17 10:45 08/04/17 05:31 Calcium Level 8.0 MG/DL (8.5-10.1) Sodium Level 126 MEQ/L (136-145) 126 MEQ/L (136-145) 129 MEQ/L (136-145) Chloride Level 92 MEQ/L (98-107) 91 MEQ/L (98-107) 95 MEQ/L (98-107) Random Glucose 125 MG/DL (74-106) Imaging Last Impressions Chest CT 08/01/17 0000 Signed Impressions: Service Date/Time: Tuesday, August 01, 2017 09:16 - CONCLUSION: There are no suspicious lung lesions identified.. Aneurysmal dilatation ascending aorta Alfie Kee MD FACR Neck Magnetic Resonance Angiography 07/27/17 0803 Signed Impressions: Service Date/Time: July 09:07 - CONCLUSION: 1. Eccentric plaque in the proximal right internal carotid artery with resultant approximately 20-30%% stenosis. 2. Patent left carotid artery without significant flow-limiting stenosis. 3. Patent vertebral arteries without significant flow-limiting stenosis. Israel Keenan MD Brain MRI 07/27/17 0803 Signed Impressions: Service Date/Time: July 09:07 - CONCLUSION: Infarct in the left external capsule. No significant mass or mass effect. Theodore Lanier MD Head Magnetic Resonance Angiography 07/27/17 0000 Signed Impressions: Service Date/Time: July 09:07 - CONCLUSION: Slight narrowing of the distal left middle cerebral artery, otherwise unremarkable exam. Theodore Lanier MD Head CT 07/26/17 1547 Signed Impressions: Service Date/Time: Wednesday, July 26, 2017 16:09 - CONCLUSION: 1. Chronic small vessel ischemic change. 2. No acute intracranial abnormality. Roman Payton Jr., MD Chest X-Ray 07/26/17 1547 Signed Impressions: Service Date/Time: Wednesday, July 26, 2017 16:18 - CONCLUSION: 1. No acute cardiopulmonary disease. Israel Keenan MD Carotid Artery Ultrasound 07/26/17 0000 Signed Impressions: Service Date/Time: Wednesday, July 26, 2017 21:18 - CONCLUSION: Right carotid bulb plaque formation with hemodynamic profile on both sides characteristic of less than 50%% stenosis. Roman Poole MD PE at Discharge General: Elderly male in no acute distress. Heart: Regular rate and rhythm. Lungs: Clear to auscultation bilaterally. No wheezes, rales, or rhonchi. Breathing is nonlabored. Abdomen: Soft, nontender, nondistended. Extremities: No lower extremity edema. Right upper and lower extremity weakness. Psych: Alert and oriented. Answers questions appropriately. Hospital Course Patient was admitted for further evaluation and management of CVA. Neurology was consulted. PT/OT/ST evals were done. Patient was placed on [facility] protocol for history of alcohol abuse. Hyponatremia was felt to be secondary to history of alcoholism. He had some confusion felt to be secondary to Ativan. Symptoms improved. Discharge was initially held as arrangements were not finalized for [facility] facility. On telemetry he was noted to have sinus pauses. Cardiology was consulted and recommended medical management. He was monitored on continuous telemetry. He remained asymptomatic. His sodium remained low. Nephrology was consulted. He was given a dose of Samsca and sodium improved slightly. He was cleared for discharge by neurology, nephrology, and cardiology. He was felt to be stable for discharge to [facility] facility. Pt Condition on Discharge: Stable Discharge Disposition: Discharge to SNF Discharge Time: > 30 minutes Discharge Instructions DIET: Follow Instructions for: As Tolerated, No Restrictions Speech Therapy-Diet Recommends: Regular Activities you can perform: Regular-No Restrictions Follow up Referrals: Neurology - 1 Week with Sachin Denson MD PCP Follow-up - 2 Weeks New Orders: BASIC METABOLIC PROF - 2-3 Days New Medications: Aspirin DR (Aspirin EC) 325 Mg Tabdr 325 MG PO DAILY for Blood Clot Prevention, #30 TAB Atorvastatin (Atorvastatin) 40 Mg Tab 40 MG PO DAILY for Cholesterol Management, #30 TAB Hydralazine HCl (Hydralazine HCl) 10 Mg Tablet 10 MG PO Q8HR for Blood Pressure Management, #90 TAB 0 Refills Lisinopril (Lisinopril) 10 Mg Tab 10 MG PO DAILY for Blood Pressure Management, #30 TAB 0 Refills Discontinued Medications: Atenolol (Atenolol) 50 Mg Tab 50 MG PO BID for Blood Pressure Management, #14 TAB 0 Refills Dhruv Carl MD Aug 04, 2017 13:24
--- NOTE | 2017-08-04 13:25 | PD.CARD.PN ---
Subjective Subjective Remarks No CP or SOB, feels better Objective Medications Current Medications Medications (Trade) Dose Ordered Sig/Luther Route Start Time Stop Time Status Last Admin (NS Flush) 2 ml BID IV FLUSH 07/26/17 21:00 08/04/17 09:18 (NS Flush) 2 ml UNSCH PRN IV FLUSH 07/26/17 18:30 (D50w (Vial) Inj) 50 ml UNSCH PRN IV PUSH 07/26/17 18:30 (Glucagon Inj) 1 mg UNSCH PRN OTHER 07/26/17 18:30 (Ecotrin Ec) 325 mg DAILY PO 07/27/17 09:00 08/04/17 09:19 (Lipitor) 40 mg DAILY PO 07/29/17 09:00 08/04/17 09:19 (Vasotec Inj) 2.5 mg Q6H PRN IV PUSH 07/29/17 09:15 08/03/17 05:19 (Ativan) 0.5 mg HS PRN PO 07/30/17 21:00 08/03/17 22:11 (Pill Splitter) 1 ea UNSCH PRN OTHER 08/01/17 06:00 (Prinivil) 10 mg DAILY PO 08/01/17 09:30 08/04/17 09:18 (Apresoline) 10 mg Q8HR PO 08/03/17 07:45 08/04/17 13:07 Vital Signs / I&O Vital Signs Date Time Temp Pulse Resp B/P (MAP) Pulse Ox O2 Delivery O2 Flow Rate FiO2 08/04/17 12:00 97.8 95 17 145/87 (106) 98 08/04/17 09:23 74 08/04/17 08:00 97.7 80 16 150/87 (108) 98 08/04/17 05:11 81 08/04/17 04:07 98.0 71 17 154/90 (111) 96 08/04/17 00:52 83 08/04/17 00:30 98.8 91 17 165/114 (131) 96 08/03/17 20:05 98.8 82 17 152/88 (109) 95 08/03/17 16:10 97 08/03/17 16:00 97.8 92 19 138/76 (96) 96 I/O 12/28/17 08/03/17 08/03/17 08/04/17 08/04/17 08/04/17 07:00 15:00 23:00 07:00 15:00 23:00 Intake Total 120 ml 960 ml 240 ml Output Total 850 ml 1050 ml 500 ml Balance -730 ml -90 ml -260 ml Intake Oral 120 ml 960 ml 240 ml Output Urine Total 850 ml 1050 ml 500 ml # Bowel Movements 1 Physical Exam GENERAL: In NAD, speech impaired SKIN: Warm and dry. HEAD: Normocephalic. EYES: No scleral icterus. No injection or drainage. NECK: Supple, trachea midline. No JVD or lymphadenopathy. CARDIOVASCULAR: Regular rate and rhythm without murmurs, gallops, or rubs. RESPIRATORY: Breath sounds equal bilaterally. No accessory muscle use. GASTROINTESTINAL: Abdomen soft, non-tender, nondistended. MUSCULOSKELETAL: No cyanosis, or edema. Laboratory Laboratory Tests Test 08/04/17 05:31 Blood Urea Nitrogen 14 MG/DL Creatinine 0.82 MG/DL Random Glucose 96 MG/DL Calcium Level 8.9 MG/DL Sodium Level 129 MEQ/L Potassium Level 3.9 MEQ/L Chloride Level 95 MEQ/L Carbon Dioxide Level 23.1 MEQ/L Anion Gap 11 MEQ/L Estimat Glomerular Filtration Rate 93 ML/MIN Assessment and Plan Problem List: (1) CVA (cerebral vascular accident) ICD Codes: I63.9 - Cerebral infarction, unspecified Status: Acute (2) HTN (hypertension) ICD Codes: I10 - Essential (primary) hypertension Status: Chronic (3) HLD (hyperlipidemia) ICD Codes: E78.5 - Hyperlipidemia, unspecified Status: Chronic (4) Sinus pause ICD Codes: I45.5 - Other specified heart block Assessment and Plan Stable from cardiac standpoint. Tele with sinus pauses, asymptomatic, no AF. Continue BP control. Continue aggressive risk factor modification. DC to rehab today. Problem Qualifiers (1) HTN (hypertension): Qualified Codes: I10 - Essential (primary) hypertension (2) HLD (hyperlipidemia): Qualified Codes: E78.5 - Hyperlipidemia, unspecified Chelsey Washington MD Aug 04, 2017 13:25
== END 2017-08-04 16:20 | DRG 65 ==
LOC: NEPE 13:15 → NEDA 18:20 → OBSVTOIN 21:14 → NEDH 07-27 01:31 → N05A 07-27 13:13
PROVIDERS: ADMIT Family Medicine; ATTEND Family Medicine
DX: I63.512 Cerebral infarction due to unspecified occlusion or stenosis of left middle cerebral artery (principal); I69.351 Hemiplegia and hemiparesis following cerebral infarction affecting right dominant side; E87.1 Hypo-osmolality and hyponatremia; I71.2 Thoracic aortic aneurysm, without rupture; E86.0 Dehydration; I10 Essential (primary) hypertension; E03.9 Hypothyroidism, unspecified; R47.81 Slurred speech; R29.810 Facial weakness; E78.5 Hyperlipidemia, unspecified; G47.00 Insomnia, unspecified; R47.1 Dysarthria and anarthria; E86.1 Hypovolemia; I45.9 Conduction disorder, unspecified; I44.4 Left anterior fascicular block; S81.001A Unspecified open wound, right knee, initial encounter; F10.20 Alcohol dependence, uncomplicated; R29.704 NIHSS score 4; W19.XXXA Unspecified fall, initial encounter; Y92.239 Unspecified place in hospital as the place of occurrence of the external cause; Y90.0 Blood alcohol level of less than 20 mg/100 ml; Z87.891 Personal history of nicotine dependence
CPT/HCPCS: 70450; 70544; 70548; 70553; 71010; 71260; 80048; 80061; 80069; 80307; 81001; 82550; 82552; 82948; 83036; 83735; 83921; 83935; 84165; 84295; 84300; 84425; 84439; 84443; 84450; 84460; 84484; 85007; 85025; 85027; 85610; 85652; 85730; 86038; 86592; 93005; 93225; 93226; 93306; 93880; A9579; J0360; J2060; J7030; J7050; Q9967